=== PATIENT | female | born 1960 | race Caucasian/White ===

== ENCOUNTER 2020-01-15 17:30 | Inpatient (IN) | payer MEDICARE ==
[2020-01-15] MEDS ORDERED: MORPHINE 4 MG/ML SYR ONE (18:06)
[2020-01-15] MEDS ORDERED: NA CHLORIDE 0.9% 500 ML ONE (18:06)
[2020-01-15] MEDS ORDERED: FAMOTIDINE 20 MG/2 ML VIAL IV ONE (18:06)
[2020-01-15] MEDS ORDERED: ONDANSETRON 4 MG/2 ML VIAL ONE (18:06)
[2020-01-15 18:14] LABS: Absolute Lymphocytes (CBC) 0.8 K/uL (0.7-4.9); Basophils % 0.3 % (0-1.3); Hematocrit 41.4 % (36.0-45.0); Lymphocytes % 20.1 % (15.3-44.8); MPV 9.2 fL (7.6-11.3); RBC Red Blood Cell Count 4.08 M/uL (3.86-4.86)
[2020-01-15 18:23] LABS: Albumin 3.9 g/dL (3.4-5.0); Bilirubin Direct 0.4 mg/dL (0-0.2); Potassium 3.9 mmol/L (3.5-5.1); Protein, Total 7.7 g/dL (6.4-8.2)
--- NOTE | 2020-01-15 18:45 | RAD REPORT ---
EXAM DESCRIPTION: US - Abdomen Exam Limited - 01/15/2020 6:35 pm CLINICAL HISTORY: RUQ/epigastric pain;Abd pain COMPARISON: No comparisons FINDINGS: The gallbladder demonstrates prominent gallstone in the region of the gallbladder neck wit h a distended gallbladder visualize. No pericholecystic fluid or gallbladder wall thickening. The com mon bile duct is upper limit of normal measuring 7 mm. The liver demonstrates no findings of intrahepatic biliary dilatation. IMPRESSION: Gallbladder distension with cholelithiasis present.
[2020-01-15 19:40] LABS: Blood Morphology Comment NOT SEEN (NOT SEEN); Platelet Estimate DECR; White Blood Cell Scan OK (OK)
[2020-01-15] MEDS ORDERED: CEFTRIAXONE/SWI 1gm 1 GM/10 ML SYR ONE (19:54)
--- NOTE | 2020-01-15 20:00 | EDPHYS ---
Physician Documentation [facility] [place] Name: Radha Wallace Age: 59 yrs Sex: Female : 1960 Arrival Date: 01/15/2020 Time: 17:33 Bed 7 Private MD: ED Physician Dane Suazo HPI: 01/14 17:50 This 59 yrs old Female presents to ER via Ambulatory with complaints of cp Abdominal Pain. 17:50 The patient presents with abdominal pain in the upper abdomen. Onset: The cp symptoms/episode began/occurred today. The symptoms radiate to back. Associated signs and symptoms: Pertinent positives: nausea, Pertinent negatives: constipation, diarrhea, dysuria, fever, active vomiting. The symptoms are described as constant. Modifying factors: the symptoms are aggravated by pressure. Historical: - Allergies: 17:35 No Known Allergies; aa5 - PMHx: 17:35 Hep C; COPD; aa5 - Immunization history:: Adult Immunizations unknown. - Social history:: Smoking status: Patient reports the use of cigarette tobacco products, smokes one-half pack cigarettes per day. ROS: 17:55 Constitutional: Negative for body aches, chills, fever, poor PO intake. cp 17:55 Eyes: Negative for injury, pain, redness, and discharge. cp 17:55 ENT: Negative for ear pain, sore throat, difficulty swallowing, difficulty handling secretions. 17:55 Cardiovascular: Negative for chest pain. 17:55 Respiratory: Negative for cough, shortness of breath, wheezing. 17:55 Abdomen/GI: Positive for abdominal pain, nausea, Negative for vomiting, diarrhea, constipation. 17:55 Back: Positive for radiated pain. 17:55 : Negative for urinary symptoms. 17:55 All other systems are negative. Exam: 18:00 Constitutional: The patient appears in no acute distress, alert, awake, cp non-diaphoretic, non-toxic, well developed, well nourished, uncomfortable. 18:00 Head/Face: Normocephalic, atraumatic. cp 18:00 Eyes: Periorbital structures: appear normal, Conjunctiva: normal, no exudate, no injection, Sclera: no appreciated abnormality, Lids and lashes: appear normal, bilaterally. 18:00 ENT: External ear(s): are unremarkable, Nose: is normal, Posterior pharynx: Airway: no evidence of obstruction, patent. 18:00 Chest/axilla: Inspection: normal, Palpation: is normal, no crepitus, no tenderness. 18:00 Cardiovascular: Rate: normal, Rhythm: regular. 18:00 Respiratory: the patient does not display signs of respiratory distress, Respirations: normal, no use of accessory muscles, labored breathing, is not present, Breath sounds: are clear throughout, no decreased breath sounds. 18:00 Abdomen/GI: Inspection: abdomen appears normal, Bowel sounds: active, all quadrants, Palpation: soft, in all quadrants, severe abdominal tenderness, in the epigastric area and right upper quadrant, rebound tenderness, is appreciated in the right upper quadrant, voluntary guarding, is elicited in the right upper quadrant. 18:00 Back: pain, that is moderate, of the mid back area. 18:00 Neuro: Orientation: to person, place \T\ time. Mentation: is normal. Vital Signs: 17:34 BP 148 / 109; Pulse 84; Resp 16 S; Temp 98.5(O); Pulse Ox 97% on R/A; Weight 86.18 kg aa5 (R); Height 5 ft. 5 in. (165.10 cm) (R); Pain 6/10; 18:10 BP 145 / 87; Pulse 72; Resp 16 S; Pulse Ox 96% on R/A; aa5 19:45 BP 131 / 75; Pulse 70; Resp 19; Temp 98; Pulse Ox 94% ; Pain 4/10; rr5 20:30 BP 146 / 89; Pulse 80; Resp 17; Pulse Ox 98% ; Pain 4/10; rr5 21:20 BP 157 / 83; Pulse 75; Resp 18; Pulse Ox 99% ; Pain 7/10; rr5 22:20 BP 135 / 76; Pulse 70; Resp 16; Temp 98.1; Pulse Ox 95% ; rr5 17:34 Body Mass Index 31.62 (86.18 kg, 165.10 cm) aa5 MDM: 17:39 Patient medically screened. cp 18:00 Differential diagnosis: bowel obstruction, cholecystitis, Cholelithiasis, cp gastroesophageal reflux disease, pancreatitis, Peptic Ulcer Disease, Perf. Duodenal Ulcer, Perf. Gastric Ulcer, Ureterolithiasis, urinary tract infection. 19:00 Data reviewed: vital signs, nurses notes, lab test result(s), radiologic studies, cp ultrasound. 19:00 Response to treatment: the patient's symptoms have markedly improved after treatment. 19:15 Physician consultation: Richard Lindsay MD was called at 19:15, was contacted at 19:15, regarding consult, patient's condition. 19:45 Physician consultation: Woo MAY was contacted at 19:45, regarding cp admission, to the medical/surgical unit. patient's condition. 01/14 17:40 Order name: Basic Metabolic Panel; Complete Time: 18:31 cp 01/14 17:40 Order name: CBC with Diff cp 01/14 17:40 Order name: Hepatic Function; Complete Time: 18:31 cp 01/14 17:40 Order name: Lipase; Complete Time: 18:31 cp 01/14 19:40 Order name: CBC Smear Scan EDIN 01/14 21:13 Order name: Urinalysis EDIN 01/14 18:06 Order name: US Abdomen Limited; Complete Time: 18:59 cp 01/14 19:00 Interpretation: Report reviewed. cp 01/14 21:13 Order name: Basic Metabolic Panel EDIN 01/14 21:13 Order name: Basic Metabolic Panel EDIN 01/14 21:13 Order name: CBC with Automated Diff EDIN 01/14 21:13 Order name: CBC with Automated Diff EDIN 01/14 21:13 Order name: Magnesium EDIN 01/14 21:13 Order name: Magnesium EDIN 01/14 17:40 Order name: IV Saline Lock; Complete Time: 17:53 cp 01/14 17:40 Order name: Labs collected and sent; Complete Time: 17:59 cp 01/14 21:10 Order name: CONS Physician Consult EDIN 01/14 21:13 Order name: NPO EDIN Administered Medications: 17:50 Drug: NS 0.9% 500 ml Route: IV; Rate: bolus; Site: right forearm; bp 17:50 Drug: Zofran (Ondansetron) 4 mg Route: IVP; Site: right forearm; bp 18:10 Follow up: Response: No adverse reaction; Nausea is decreased aa5 17:50 Drug: morphine 4 mg Route: IVP; Site: right forearm; bp 18:10 Follow up: Response: No adverse reaction; Pain is decreased aa5 17:50 Drug: Pepcid 20 mg Route: IVP; Site: right forearm; bp 18:10 Follow up: Response: No adverse reaction aa5 19:46 Drug: Rocephin - (cefTRIAXone) 1 grams Route: IVPB; Infused Over: 30 mins; Site: right rr5 forearm; 22:19 Follow up: Response: No adverse reaction; IV Status: Completed infusion; IV Intake: [id number] Disposition: 01/15 07:15 Co-signature as Attending Physician, Dane Suazo MD. rn Disposition: 01/15/20 19:59 Hospitalization ordered by Alejandro Mclaughlin for Inpatient Admission. Preliminary diagnosis is Cholecystitis, unspecified. - Bed requested for Telemetry/MedSurg (Inpatient). - Status is Inpatient Admission. sg - Condition is Stable. - Problem is new. - Symptoms have improved. Signatures: Dispatcher [employer] EDMS Katarina Bernabe RN RN kl Gay, Steven, RN RN sg Nieto, Roman, MD MD rn Calderon, Audri, RN RN aa5 Spencer Velazquez PA PA cp Peltier, Brian, RN RN Sachin Henriquez RN RN rr5 Corrections: (The following items were deleted from the chart) 01/14 21:10 19:59 Hospitalization Ordered by Woo MAY for Inpatient Admission. cp Preliminary diagnosis is Cholecystitis, unspecified. Bed requested for Telemetry/MedSurg (Inpatient). Status is Inpatient Admission. Condition is Stable. Problem is new. Symptoms have improved. cp 22:16 21:10 01/15/2020 19:59 Hospitalization Ordered by Alejandro Mclaughlin MD for Inpatient kl Admission. Preliminary diagnosis is Cholecystitis, unspecified. Bed requested for Telemetry/MedSurg (Inpatient). Status is Inpatient Admission. Condition is Stable. Problem is new. Symptoms have improved. cp 22:45 22:16 01/15/2020 19:59 Hospitalization Ordered by Alejandro Mclaughlin MD for Inpatient sg Admission. Preliminary diagnosis is Cholecystitis, unspecified. Bed requested for Telemetry/MedSurg (Inpatient). Status is Inpatient Admission. Condition is Stable. Problem is new. Symptoms have improved. 01/15 05:05 01/14 17:50 The patient presents with abdominal pain in the epigastric area, cp cp
--- NOTE | 2020-01-15 20:00 | ER ---
Nurse's Notes [facility] Name: Radha Wallace Age: 59 yrs Sex: Female : 1960 Arrival Date: 01/15/2020 Time: 17:33 Bed 7 Private MD: Diagnosis: Cholecystitis, unspecified Presentation: 01/14 17:33 Chief complaint: Patient states: Acute RUQ pain and nausea. Denies vomiting/diarrhea. aa5 17:33 Coronavirus screen: Client denies travel out of the [place] in the last 14 days. At this aa5 time, the client does not indicate any symptoms associated with coronavirus-19. Ebola Screen: Patient negative for fever greater than or equal to 101.5 degrees Fahrenheit, and additional compatible Ebola Virus Disease symptoms. Initial Sepsis Screen: Does the patient meet any 2 criteria? No. Patient's initial sepsis screen is negative. Does the patient have a suspected source of infection? No. Patient's initial sepsis screen is negative. Risk Assessment: Do you want to hurt yourself or someone else? Patient reports no desire to harm self or others. Onset of symptoms was 2019. 17:33 Method Of Arrival: Ambulatory aa5 17:33 Acuity: ALESSANDRO 3 aa5 Historical: - Allergies: 17:35 No Known Allergies; aa5 - PMHx: 17:35 Hep C; COPD; aa5 - Immunization history:: Adult Immunizations unknown. - Social history:: Smoking status: Patient reports the use of cigarette tobacco products, smokes one-half pack cigarettes per day. Screenin:40 Abuse screen: Denies threats or abuse. Nutritional screening: No deficits noted. aa5 Tuberculosis screening: No symptoms or risk factors identified. Fall Risk None identified. Assessment: 17:34 General: Appears uncomfortable, Behavior is calm, cooperative. Pain: Complains of pain aa5 in right upper quadrant Pain radiates to epigastric area and left upper quadrant Pain currently is 6 out of 10 on a pain scale. Quality of pain is described as pressure, sharp, Pain began around 1600 today Is continuous. Neuro: Level of Consciousness is awake, alert, obeys commands, Oriented to person, place, time, situation. Cardiovascular: Heart tones S1 S2 present Rhythm is regular. Respiratory: Airway is patent Respiratory effort is even, unlabored, Respiratory pattern is regular, symmetrical. GI: Abdomen is round distended, Bowel sounds present X 4 quads. Abd is soft X 4 quads Abdomen is tender to palpation in right upper quadrant Reports nausea, Patient currently denies diarrhea, vomiting. : No signs and/or symptoms were reported regarding the genitourinary system. EENT: No signs and/or symptoms were reported regarding the EENT system. Derm: Skin is pink, warm \T\ dry. Musculoskeletal: Range of motion: intact in all extremities. 18:10 Reassessment: Patient is alert, oriented x 3, equal unlabored respirations, skin aa5 warm/dry/pink. Patient states feeling better. Awaiting US. Pain: Pain currently is 3 out of 10 on a pain scale. 18:13 Reassessment: US at bedside . aa5 19:30 General: Appears in no apparent distress. comfortable, Behavior is calm, cooperative, rr5 appropriate for age, reassess by ED provider advised for admission. patient agreed. instructed NPO post midnight. Pain: Complains of pain in right upper quadrant Pain currently is 5 out of 10 on a pain scale. Quality of pain is described as pressure, sharp, Pain began gradually, Is continuous. Neuro: Level of Consciousness is awake, alert, obeys commands, Oriented to person, place, time, situation. Cardiovascular: Capillary refill < 3 seconds Patient's skin is warm and dry. Respiratory: Airway is patent Respiratory effort is even, unlabored, Respiratory pattern is regular, symmetrical. GI: Abdomen is round distended, Reports upper abdominal pain, nausea. : No signs and/or symptoms were reported regarding the genitourinary system. Derm: Skin is intact, is healthy with good turgor, Skin temperature is warm. Musculoskeletal: Capillary refill < 3 seconds. 20:30 Reassessment: Patient appears in no apparent distress at this time. Patient is alert, rr5 oriented x 3, equal unlabored respirations, skin warm/dry/pink. 21:20 Reassessment: Patient appears in no apparent distress at this time. Patient is alert, rr5 oriented x 3, equal unlabored respirations, skin warm/dry/pink. complaint of RUQ pain, [facility] order for pain given and signed. 22:20 Reassessment: Patient appears in no apparent distress at this time. Patient is alert, rr5 oriented x 3, equal unlabored respirations, skin warm/dry/pink. Patient states symptoms have improved. Vital Signs: 17:34 BP 148 / 109; Pulse 84; Resp 16 S; Temp 98.5(O); Pulse Ox 97% on R/A; Weight 86.18 kg aa5 (R); Height 5 ft. 5 in. (165.10 cm) (R); Pain 6/10; 18:10 BP 145 / 87; Pulse 72; Resp 16 S; Pulse Ox 96% on R/A; aa5 19:45 BP 131 / 75; Pulse 70; Resp 19; Temp 98; Pulse Ox 94% ; Pain 4/10; rr5 20:30 BP 146 / 89; Pulse 80; Resp 17; Pulse Ox 98% ; Pain 4/10; rr5 21:20 BP 157 / 83; Pulse 75; Resp 18; Pulse Ox 99% ; Pain 7/10; rr5 22:20 BP 135 / 76; Pulse 70; Resp 16; Temp 98.1; Pulse Ox 95% ; rr5 17:34 Body Mass Index 31.62 (86.18 kg, 165.10 cm) aa5 ED Course: 17:33 Patient arrived in ED. aa5 17:33 Ambar Herman, BAKARI is Primary Nurse. aa5 17:33 Arm band placed on Patient placed in an exam room, on a stretcher. aa5 17:33 Patient has correct armband on for positive identification. Placed in gown. Bed in low aa5 position. Call light in reach. Side rails up X2. Pulse ox on. NIBP on. 17:34 Triage completed. aa5 17:36 Spencer Velazquez PA is PHCP. cp 17:36 Dane Suazo MD is Attending Physician. cp 17:53 Inserted saline lock: 20 gauge in right antecubital area, using aseptic technique. dh4 Blood collected. 18:35 US Abdomen Limited In Process Unspecified. EDMS 19:05 Report given to BAKARI Stephenson and BAKARI Cardenas. aa5 19:59 Woo Caldwell PA is Hospitalizing Provider. cp 21:10 Hospitalizing Provider role handed off by Woo Caldwell PA cp 21:10 Alejandro Mclaughlin MD is Hospitalizing Provider. cp 22:07 No provider procedures requiring assistance completed. IV is patent, with fluids rr5 infusing freely, Patient admitted, IV remains in place. Administered Medications: 17:50 Drug: NS 0.9% 500 ml Route: IV; Rate: bolus; Site: right forearm; bp 17:50 Drug: Zofran (Ondansetron) 4 mg Route: IVP; Site: right forearm; bp 18:10 Follow up: Response: No adverse reaction; Nausea is decreased aa5 17:50 Drug: morphine 4 mg Route: IVP; Site: right forearm; bp 18:10 Follow up: Response: No adverse reaction; Pain is decreased aa5 17:50 Drug: Pepcid 20 mg Route: IVP; Site: right forearm; bp 18:10 Follow up: Response: No adverse reaction aa5 19:46 Drug: Rocephin - (cefTRIAXone) 1 grams Route: IVPB; Infused Over: 30 mins; Site: right rr5 forearm; 22:19 Follow up: Response: No adverse reaction; IV Status: Completed infusion; IV Intake: [id number] Intake: 22:19 IV: 50ml; Total: 50ml. rr5 Outcome: 19:59 Decision to Hospitalize by Provider. cp 22:07 Condition: good rr5 22:07 Instructed on the need for admit. 22:40 Admitted to Tele accompanied by tech, via wheelchair, room 408, with chart, Report rr5 called to maryann 22:45 Patient left the ED. sg Signatures: Dispatcher [employer] EDMS Erasto Sibley RN RN sg Ambar Herman RN RN aa5 Spencer Velazquez PA PA cp Javed Woodruff RN RN bp Roque, Raymond, RN RN rr5 Manuel [facility]s formerly [facility], 1928–1983 Corrections: (The following items were deleted from the chart) 18:11 17:33 Chief complaint: Patient states: RUQ pain and nausea. Denies vomiting/diarrhea. aa5 aa5 22:40 22:20 BP 135 / 76; Pulse 70bpm; Resp 16bpm; Pulse Ox 95%; rr5 rr5 22:52 22:07 Admitted to ICU accompanied by nurse, via stretcher, room 3, Other sbar Report rr5 called to alfonso holt rr5
[2020-01-15] MEDS ORDERED: ACETAMINOPHEN 500 MG TAB PO PRN (21:10)
[2020-01-15] MEDS: MORPHINE 2 MG/ML SYR IV PRN (21:21)
[2020-01-15] MEDS: ONDANSETRON 4 MG/2 ML VIAL IV PRN (21:26)
[2020-01-15] MEDS: NA CHLORIDE 0.9% 1,000 ML IV SCH (22:00)
--- NOTE | 2020-01-15 22:21 | P.HP ---
Certification for Inpatient With expected LOS: >2 Midnights Patient will require the following post-hospital care: None Practitioner: I am a practitioner with admitting privileges, knowledge of patient current condition, hospital course, and medical plan of care. Services: Services provided to patient in accordance with Admission requirements found in Title 42 Section 412.3 of the Code of Federal Regulations <Woo Caldwell - Last Filed: 01/15/20 22:36> Patient History Date of Service: 01/15/20 Reason for admission: Acute cholecystitis History of Present Illness: 67-year-old female with a past medical history of hep C, nicotine dependence and COPD presents to the emergency room complaining of right upper quadrant pain. States the pain in her right upper quadrant area started earlier this morning when she was at the [employer] [place]. Onset was sudden. States that the pain progressively worsened and patient came to the emergency room. In the emergency room patient's lab work shows a white cell count of 3.9, platelets of 66, elevated liver enzyme of AST of 115, ALT of 118 and a direct bili of 0.4. Patient does have a history of hepatitis-C. Her lipase is normal at 77. Rest of lab work is fairly unremarkable. Ultrasound of the gallbladder shows a distended gallbladder with gallstones. Surgery was consulted and patient will likely undergo a laparoscopic cholecystectomy in the morning. Patient will be admitted and further evaluated. <Woo Caldwell - Last Filed: 01/15/20 22:36> Date of Service: 01/15/20 <Alejandro Mclaughlin - Last Filed: 01/20/20 08:12> Allergies No Known Allergies Allergy (Unverified 01/15/20 21:15) Home Medications: Hydrocodone Bit/Acetaminophen [[place] 10-325 Tablet] 1 each PO Q6HP PRN #30 tablet 01/17/20 Levofloxacin [Levaquin] 500 mg PO DAILY #5 tablet 01/17/20 metroNIDAZOLE [Flagyl] 500 mg PO Q8H #21 tablet 01/17/20 Review of Systems General: As per HPI Eyes: Unremarkable ENT: Unremarkable Respiratory: Unremarkable Cardiovascular: Unremarkable Gastrointestinal: Abdominal Pain (Right upper quadrant pain), As per HPI Genitourinary: Unremarkable Musculoskeletal: Unremarkable Integumentary: Unremarkable Neurological: Unremarkable Lymphatics: Unremarkable <Woo Caldwell - Last Filed: 01/15/20 22:36> Physical Examination - Vital Signs Temperature: 98.5 F Blood Pressure: 131/75 Pulse: 70 Respirations: 18 Pulse Ox (%): 94 (RA) - Physical Exam General: Alert, In no apparent distress, Oriented x3 HEENT: Atraumatic, Normocephalic, PERRLA, Mucous membr. moist/pink Neck: Supple, No Thyromegaly, Other (Trachea midline) Respiratory: Clear to auscultation bilaterally, Normal air movement Cardiovascular: No edema, Normal pulses, Regular rate/rhythm, Normal S1 S2 Capillary refill: <2 Seconds Gastrointestinal: Normal bowel sounds, Non-distended, No rebound, No guarding, Tenderness (Right upper quadrant) Musculoskeletal: No clubbing, No swelling, No contractures, No erythema Integumentary: No rashes, No breakdown, No significant lesion, No erythema Neurological: Normal gait, Normal speech, Normal strength at 5/5 x4 extr, Normal tone - Studies Laboratory Data (last 24 hrs) 01/15/20 17:42: WBC 3.9 L, Hgb 14.4, Hct 41.4, Plt Count 66 L 01/15/20 17:42: Sodium 138, Potassium 3.9, BUN 10, Creatinine 0.68, Glucose 82, Total Bilirubin 1.0, AST 115 H, ALT 118 H, Alkaline Phosphatase 100, Lipase 77 <Woo Caldwell - Last Filed: 01/15/20 22:36> Assessment and Plan - Plan Impression: Acute cholecystitis with cholelithiasis: History of hep C: Thrombocytopenia: History of COPD not on home O2: Nicotine dependent: Plan: Acute cholecystitis with cholelithiasis: Abdominal ultrasound shows a distended gallbladder with gallstones. Surgery consulted-Dr. Lindsay. Keep patient NPO. Continue IV pain medication for proper pain control. Continue gentle IV fluids. Continuous telemetry. Patient likely to have laparoscopic cholecystectomy in the morning. History of hep C: Elevated liver enzymes on admission. Patient has a history of hep C. followed outpatient. Thrombocytopenia: Likely secondary to hep C as above. Platelets of 66. Monitor. History of COPD not on home O2: Patient smokes half a pack of cigarettes per day. Not on home oxygen. Monitor O2 saturations. Nicotine dependent: Smokes half a pack of cigarettes per day. Counseled. Discharge Plan: Home - Advance Directives Does patient have a Living Will: No Does patient have a Durable POA for Healthcare: No - Code Status/Comfort Care Code Status Assessed: Yes Time Spent Managing Pts Care (In Minutes): 55 <Woo Caldwell - Last Filed: 01/15/20 22:36> - Problems (Diagnosis) (1) Acute cholecystitis Status: Acute (2) Thrombocytopenia Status: Acute (3) Cirrhosis Status: Acute (4) Hepatitis C Status: Acute <Alejandro Mclaughlin - Last Filed: 01/20/20 08:12> Date of Service: 01/16/20 Agree with plan of care as mentioned above. Will monitor patient closely at this time. <Alejandro Mclaughlin - Last Filed: 01/20/20 08:12>
--- NOTE | 2020-01-15 23:36 | P.HP ---
Date of Service: 01/15/20 PC: This 59-year-old female presents emergency room with severe right upper quadrant abdominal pain for diagnosis and treatment. HPC: Patient says she had a pain like this earlier in the year. Was supposed to have a workup on an lost her insurance. She was seen in number of years ago at that time was known to have sludge. PMH: Hepatitis PSHx: Hysterectomy SOC: No known allergy SYS REVIEW: No cough, wheeze, shortness of breath. No chest pain or palpitations. No urinary complaints O/E awake alert stable HEENT: Nonicteric Chest: Chest movement equal bilateral ABD: Mild right upper quadrant tendon LOCO: Intact DATA: Ultrasound shows large stone in a dilated gallbladder near the neck probably impacted in Lupis's pouch IMPRESSION: Acute on chronic cholecystitis with cholelithiasis PLAN: The patient is comfortable at the moment. Her pain is controlled with IV medication. I will take her to the operating room in the morning for a laparoscopic possible open cholecystectomy. We will also do a cholangiogram and possible liver biopsy. The risks of this procedure were discussed. The possibi lity of bleeding, infection, injury to bile ducts blood vessels and intestines were described. The possible need for an open and/or further surgeries and procedures was discussed. She understands and wants to proceed.
[2020-01-16] MEDS: PIPER/TAZO/NS 3.375gm 3.375 GM/100 ML BAG IVPB SCH ×3 (00:04→16:47)
[2020-01-16 00:47] VITALS: BMI 31.6
[2020-01-16] MEDS ORDERED: HEPARIN 5000 UNIT/ML 1 ML VIAL SQ SCH (01:00)
[2020-01-16 02:09] LABS: Urine Appearance CLEAR; Urine Bilirubin NEGATIVE (NEG); Urine Blood NEGATIVE (NEG); Urine Color YELLOW; Urine Glucose NEGATIVE (NEG); Urine Microscopic Reflex NO UMIC; Urine Protein NEGATIVE (NEG); Urine Urobilinogen 0.2 mg/dL (0.2-1.0); Urine pH 5.5 (5.0-7.0)
[2020-01-16] MEDS: ONDANSETRON 4 MG/2 ML VIAL IV PRN ×4 (03:21→21:56)
[2020-01-16] MEDS: MORPHINE 2 MG/ML SYR IV PRN (03:21)
[2020-01-16 04:01] LABS: Absolute Lymphocytes (CBC) 0.8 K/uL (0.7-4.9); Basophils % 0.7 % (0-1.3); Hematocrit 36.9 % (36.0-45.0); Lymphocytes % 29.5 % (15.3-44.8); MPV 8.6 fL (7.6-11.3); RBC Red Blood Cell Count 3.62 M/uL (3.86-4.86)
[2020-01-16 04:24] LABS: Magnesium 1.9 mg/dL (1.8-2.4)
[2020-01-16] MEDS: NA CHLORIDE 0.9% 1,000 ML IV SCH ×3 (08:48→21:08)
[2020-01-16] MEDS: MORPHINE 4 MG/ML SYR IV PRN ×3 (08:59→21:55)
[2020-01-16] MEDS ORDERED: INFLUENZA VACCINE (for 3y+) 0.5 ML DOSE IMVAC ONE (09:00)
[2020-01-16] MEDS ORDERED: PNEUMOCOCCAL VACCINE 0.5 ML IMVAC ONE (09:00)
[2020-01-16] MEDS ORDERED: FENTANYL CITR 100 MCG/2 ML ONE (11:58)
[2020-01-16] MEDS ORDERED: propofoL 200 MG/20 ML VIAL IV ONE (11:58)
[2020-01-16] MEDS ORDERED: KETOROLAC 30 MG/ML INJ ONE (11:58)
[2020-01-16] MEDS ORDERED: MIDAZOLAM HCL 2 MG/2 ML INJ ONE (11:58)
[2020-01-16] MEDS ORDERED: LIDOCAINE 2% MPF 5 ML VIAL ONE (11:58)
[2020-01-16] MEDS ORDERED: dexAMETHasone 4 MG/ML VIAL ONE (12:00)
[2020-01-16] MEDS ORDERED: ONDANSETRON 4 MG/2 ML VIAL ONE (12:00)
[2020-01-16] MEDS ORDERED: ROCURONIUM 50 MG/5 ML VIAL IV ONE ×2 (12:00→13:51)
--- NOTE | 2020-01-16 12:03 | P.PN ---
Date of Service: 01/16/20 S: Patient is still having persistent pain. Can't get any relief from it. O: Mild right upper quadrant tenderness, platelet count [id number] A: Biliary colic with stone stuck in Lupis's pouch PE: Once again and discuss the surgery with the patient. The risks of bleeding injury to bile ducts Excedrin the possibility of an open procedure were outlined. She understands and wants to proceed. We will give her some platelets intra and postoperatively. We will also get a liver biopsy.
[2020-01-16] MEDS ORDERED: NA CHLORIDE 0.9% 100 ML IV ONE (12:08)
[2020-01-16] MEDS ORDERED: ALBUTEROL 2.5 MG/3 ML NEB SOL ONE (12:20)
[2020-01-16] MEDS ORDERED: ALBUTEROL INHALER 60 PUFF/8 GM IH ONE (13:00)
[2020-01-16] MEDS ORDERED: GLYCOPYRROLATE 0.2 MG/ML SYR ONE ×3 (14:06→14:13)
[2020-01-16] MEDS ORDERED: NEOSTIGMINE 1 MG/ML -5 ML ONE (14:07)
[2020-01-16] MEDS ORDERED: LABETALOL 20 MG/4ML SYRINGE IV ONE (14:12)
--- NOTE | 2020-01-16 14:31 | P.OP ---
Preoperative diagnosis: Cholecystitis with cholelithiasis, biliary colic Postoperative diagnosis: Cholecystitis with cholelithiasis, cirrhosis Primary procedure: Laparoscopic cholecystectomy with intraoperative cholangiogram Secondary procedure: Liver biopsy Anesthesia: General Estimated blood loss: Less than 20-30 cc Operative Technique: The patient brought the operating room placed supine on the table. After the induction of adequate general endotracheal anesthesia, there the abdomen was prepped with a DuraPrep solution, and she was draped in usual aseptic manner. A subumbilical incision was made. This brought down through the skin and subcutaneous tissue. The Visiport was now used to enter the peritoneal cavity and created pneumoperitoneum to approximately 12 mm of mercury. Under direct vision a 5 mm trocar was placed in the upper midline and 2 others on the right lateral side of the abdominal wall. With the patient placed in reverse Trendelenburg and rolled to the left side we were able to visualize the right upper quadrant. We could see a cirrhotic liver as well as an markedly enlarged gallbladder. It had almost at the level of the umbilicus a grasper was placed on the body of the gallbladder. It was then elevated. We could see there was extensive amount of chronic thick dense inflammatory tissue. This was gently dissected off to expose Lupis's pouch. How was pressure was now able to be grasped. Again dissected away this chronic scar tissue we finally were able to expose the cystic duct and cystic artery. Having obtained a slightly compromised critical view, we were able to clip and divide the artery. A clip was now placed between the gallbladder and the cystic duct. An opening was made into the cystic duct through which we were able to 10 demonstrate a clean extra hepatic biliary tree. We could also verified that we were in the cystic duct. At this point the catheter was removed. Clips were placed on the distal portion of the cystic duct. The gallbladder was now laboriously dissected out of the liver bed. The port, placed into an Endo-Catch and brought out through the umbilical trocar site. At this point the liver bed was inspected to ensure adequate hemostasis. We we did see a small area of bile in the liver bed and a small duct was noted in that area. 2 clips were placed to control it. There is now irrigated with a copious amount of saline solution. Attention was turned towards the right lobe of the liver. A small skin incision was made with 11 blade. The Nam-Cut needle was now passed into the peritoneal cavity and under direct vision a Nam-Cut needle biopsy was done of the right lobe of the liver. This was sent for histopathology. Electro cautery was used to control the bleeding. At this point the at was inspected to ensure adequate hemostasis. The umbilical trocar site was approximated using the Endo Close an absorbable suture. The pneumoperitoneum was collapsed, the sutures tied, and the trocars removed. Mindy were then applied to the skin. At the end of procedure she was stable when sent to the recovery room. Needle sponge instrument count were correct. No drains were placed. Complications: None Transferred to: Recovery Room Condition: Good
[2020-01-16] MEDS ORDERED: PROMETHAZINE INJ 25 MG/ML AMP ONE (14:59)
[2020-01-16] MEDS ORDERED: MEPERIDINE HCL 25 MG/ML SYR ONE (15:00)
[2020-01-16] MEDS ORDERED: NA CHLORIDE 0.9% 1,000 ML ONE (15:02)
[2020-01-16] MEDS: HYDROMORPHONE HCL 1 MG/ML INJ ONE ×2 (15:11→15:19)
--- NOTE | 2020-01-16 15:20 | RAD REPORT ---
EXAM DESCRIPTION: RADCholangiogram Oper-Xray Or01/16/2020 3:08 pm CLINICAL HISTORY: Abdominal pain FINDINGS: The examination was performed by Dr. Lindsay. The cystic duct was cannulated and contrast administered. Contrast flowed into the duodenum. No permanent filling defect within the common bile duct. Three fluoroscopic spot images obtained. Fluoroscopy time 0.1 minute
[2020-01-16 15:29] LABS: MPV 8.9 fL (7.6-11.3)
--- NOTE | 2020-01-16 16:13 | P.PN ---
Subjective Date of Service: 01/16/20 Patient scheduled for surgery today. Patient has history of hepatitis-C that has not been treated. She says she is not able to afford the treatment. She has not seen a GI doctor in the last 2 years. She was thrombocytopenic on arrival. Platelet count 47,000. Transfused platelet count main galley scullion to the OR. Surgery also wants platelet transfusion afterwards. Review of Systems 10-point ROS is otherwise unremarkable Physical Examination - Vital Signs Temperature: 97.9 F Blood Pressure: 106/52 Pulse: 70 Respirations: 16 Pulse Ox (%): 93 - Physical Exam General: Alert, In no apparent distress, Oriented x3 Respiratory: Clear to auscultation bilaterally, Normal air movement Cardiovascular: Regular rate/rhythm, Normal S1 S2, No murmurs Gastrointestinal: Normal bowel sounds, Soft and benign, Distended, Tenderness, Rebound Musculoskeletal: No clubbing, No swelling, No tenderness Neurological: Normal strength at 5/5 x4 extr, Sensation intact, Cranial nerves 3-12 intact - Studies Laboratory Data (last 24 hrs) 01/15/20 17:42: WBC 3.9 L, Hgb 14.4, Hct 41.4, Plt Count 66 L 01/15/20 17:42: Sodium 138, Potassium 3.9, BUN 10, Creatinine 0.68, Glucose 82, Total Bilirubin 1.0, AST 115 H, ALT 118 H, Alkaline Phosphatase 100, Lipase 77 Medications List Reviewed: Yes Assessment & Plan - Problems (Diagnosis) (1) Acute cholecystitis Status: Acute (2) Thrombocytopenia Status: Acute (3) Cirrhosis Status: Acute (4) Hepatitis C Status: Acute - Plan 1. Continue with IV hydration 2. Continue with IV antibiotics 3. Continue with pain control 4. NPO 5. General surgery consultation appreciated 6. Serial H&H, and we will monitor CBC, BMP, LFTs and lipase along with electrolytes. 7. GI and DVT prophylaxis Discharge Plan: Home Plan to discharge in: Greater than 2 days - Advance Directives Does patient have a Living Will: No Does patient have a Durable POA for Healthcare: No - Code Status/Comfort Care Code Status Assessed: No Code Status: Full Code Critical Care: No Time Spent Managing PTS Care (In Minutes): 35
[2020-01-16 18:15] LABS: Platelet Estimate DECR
[2020-01-16] MEDS ORDERED: NA CHLORIDE 0.9% 250 ML ONE (21:19)
[2020-01-16 23:39] LABS: MPV 8.3 fL (7.6-11.3)
[2020-01-16 23:40] LABS: Platelet Estimate ND
[2020-01-17] MEDS: PIPER/TAZO/NS 3.375gm 3.375 GM/100 ML BAG IVPB SCH ×2 (00:02→08:17)
[2020-01-17] MEDS: MORPHINE 4 MG/ML SYR IV PRN ×4 (02:05→14:05)
[2020-01-17] MEDS: NA CHLORIDE 0.9% 1,000 ML IV SCH ×2 (06:11→14:00)
[2020-01-17 09:21] LABS: Absolute Lymphocytes (CBC) 0.7 K/uL (0.7-4.9); Basophils % 0.3 % (0-1.3); Hematocrit 38.8 % (36.0-45.0); Lymphocytes % 14.7 % (15.3-44.8); MPV 8.5 fL (7.6-11.3); Protime INR 1.09; RBC Red Blood Cell Count 3.77 M/uL (3.86-4.86)
[2020-01-17 09:24] LABS: Albumin 3.2 g/dL (3.4-5.0); Potassium 3.5 mmol/L (3.5-5.1); Protein, Total 6.4 g/dL (6.4-8.2)
[2020-01-17 11:37] VITALS: O2SAT 94
--- NOTE | 2020-01-17 13:56 | P.PN ---
Date of Service: 01/17/20 S: Patient feels much better today, up ambulating, tolerating a diet. O: Incisions are clean, has some scattered petechiae around the ports as expected. A: Surgically stable P: Discharge home.
[2020-01-17] MEDS ORDERED: PNEUMOCOCCAL VACCINE 0.5 ML IMVAC ONE (15:00)
[2020-01-17] MEDS ORDERED: INFLUENZA VACCINE (for 3y+) 0.5 ML DOSE IMVAC ONE (15:00)
[2020-01-19 14:42] VITALS: BP 106/52; TEMP 97.9
--- NOTE | 2020-01-19 14:43 | P.DS ---
Discharge Date: 01/17/20 Disposition: ROUTINE DISCHARGE Discharge Condition: GOOD Reason for Admission: Acute cholecystitis Consultations: General surgeon - Problems (1) Acute cholecystitis Status: Acute (2) Thrombocytopenia Status: Acute (3) Cirrhosis Status: Acute (4) Hepatitis C Status: Acute Brief History of Present Illness: Patient is a 67-year-old female with a past medical history of hep C, nicotine dependence and COPD presents to the emergency room complaining of right upper quadrant pain. States the pain in her right upper quadrant area started earlier this morning when she was at the [employer] [place]. Onset was sudden. States that the pain progressively worsened and patient came to the emergency room. In the emergency room patient's lab work shows a white cell count of 3.9, platelets of 66, elevated liver enzyme of AST of 115, ALT of 118 and a direct bili of 0.4. Patient does have a history of hepatitis-C. Her lipase is normal at 77. Rest of lab work is fairly unremarkable. Ultrasound of the gallbladder shows a distended gallbladder with gallstones. Surgery was consulted and patient will likely undergo a laparoscopic cholecystectomy in the morning. Patient will be admitted and further evaluated. Hospital Course: Patient has done well postoperatively. Patient does have little bit of drainage and was seen by General surgery. Patient is stable for discharge per their recommendations. Will continue with antibiotics at the time of discharge. Outpatient follow-up with General surgery in 1-2 weeks. Vital Signs/Physical Exam: Temp Pulse Resp BP Pulse Ox 97.9 F 70 16 106/52 L 93 01/19/20 14:42 01/19/20 14:42 01/19/20 14:42 01/19/20 14:42 01/19/20 14:42 General: Alert, In no apparent distress, Oriented x3 Laboratory Data at Discharge: WBC 4.7 K/uL (4.3-10.9) D 01/17/20 08:50 Hgb 13.4 g/dL (12.0-15.0) 01/17/20 08:50 Hct 38.8 % (36.0-45.0) 01/17/20 08:50 Plt Count 78 K/uL (152-406) L 01/17/20 08:50 PT 12.8 SECONDS (9.5-12.5) H 01/17/20 08:50 INR 1.09 01/17/20 08:50 APTT 28.9 SECONDS (24.3-36.9) 01/17/20 08:50 Sodium 142 mmol/L (136-145) 01/17/20 08:50 Potassium 3.5 mmol/L (3.5-5.1) 01/17/20 08:50 BUN 7 mg/dL (7-18) 01/17/20 08:50 Creatinine 0.73 mg/dL (0.55-1.3) 01/17/20 08:50 Glucose 102 mg/dL (74-106) 01/17/20 08:50 Magnesium 1.9 mg/dL (1.8-2.4) 01/16/20 03:10 Total Bilirubin 1.0 mg/dL (0.2-1.0) 01/17/20 08:50 AST 63 U/L (15-37) H 01/17/20 08:50 ALT 86 U/L (12-78) H 01/17/20 08:50 Alkaline Phosphatase 66 U/L (45-117) 01/17/20 08:50 Lipase 77 U/L (73-393) 01/15/20 17:42 Home Medications: Hydrocodone Bit/Acetaminophen [[place] 10-325 Tablet] 1 each PO Q6HP PRN #30 tablet 01/17/20 Levofloxacin [Levaquin] 500 mg PO DAILY #5 tablet 01/17/20 metroNIDAZOLE [Flagyl] 500 mg PO Q8H #21 tablet 01/17/20 New Medications: metroNIDAZOLE [Flagyl] 500 mg PO Q8H #21 tablet Levofloxacin [Levaquin] 500 mg PO DAILY #5 tablet Hydrocodone Bit/Acetaminophen [[place] 10-325 Tablet] 1 each PO Q6HP PRN #30 tablet PRN Reason: Pain Scale 2-4 (Mild) Patient Discharge Instructions: OK TO DC IV AND DC HOME. FOLLOW-UP WITH PRIMARY CARE PROVIDER IN 1-2 WEEKS. FOLLOW UP WITH GASTROENTEROLOGY IN 1-2 WEEKS. FOLLOW-UP WITH SURGERY IN 1-2 WEEKS. RETURN TO THE ER IF SYMPTOMS WORSEN. CALL or TEXT DR. NAILS AT [phone] IF ANY QUESTIONS REGARDING HOSPITAL STAY. PLEASE CALL THE FLOOR AT [phone] IF ANY MEDICATION OR NURSING QUESTIONS. Diet: AHA Activity: Fall precautions Followup: Richard Lindsay MD [ACTIVE - CAN ADMIT] - 1-2 Weeks (surgeon- call to schedule follow up visit ) Time spent managing pt's care (in minutes): 35
== END 2020-01-17 15:35 | disposition home or self-care (01) | DRG 419 ==
LOC: ER 17:30 → ERHOLD 21:02 → 4TH 22:38
PROVIDERS: ADMIT Hospitalist; ATTEND Hospitalist
PROC: BF121ZZ Fluoroscopy of Gallbladder using Low Osmolar Contrast (ICD-10-PCS; 2020-01-16)
PROC: 0FB13ZX Excision of Right Lobe Liver, Percutaneous Approach, Diagnostic (ICD-10-PCS; 2020-01-16)
PROC: 0FT44ZZ Resection of Gallbladder, Percutaneous Endoscopic Approach (ICD-10-PCS; principal; 2020-01-16 12:00)
DX: K80.12 Calculus of gallbladder with acute and chronic cholecystitis without obstruction (principal); D69.6 Thrombocytopenia, unspecified; F17.210 Nicotine dependence, cigarettes, uncomplicated; K74.60 Unspecified cirrhosis of liver; B19.20 Unspecified viral hepatitis C without hepatic coma; J44.9 Chronic obstructive pulmonary disease, unspecified; R94.5 Abnormal results of liver function studies; Z90.710 Acquired absence of both cervix and uterus; Z79.890 Hormone replacement therapy; Z79.899 Other long term (current) drug therapy; Z79.891 Long term (current) use of opiate analgesic; Z20.828 Contact with and (suspected) exposure to other viral communicable diseases
CPT/HCPCS: 36415; 74300; 76705; 80048; 80053; 80076; 81003; 83690; 83735; 85025; 85049; 85610; 85730; 86850; 86900; 86901; 88304; 88307; 88313; 90471; 90732; 96365; 96366; 96375; 99285; J0696; J1100; J1170; J1644; J2175; J2250; J2270; J2405; J2543; J2550; J2704; J2710; J3010; J7030; J7040; J7050; P9035; Q2035; U0003

== ENCOUNTER 2020-02-01 16:44 | Emergency (ER) | payer MEDICARE ==
[2020-02-01] MEDS ORDERED: ONDANSETRON 4 MG/2 ML VIAL ONE ×2 (17:35→19:29)
[2020-02-01 19:26] LABS: Absolute Lymphocytes (CBC) 0.7 K/uL (0.7-4.9); Basophils % 0.6 % (0-1.3); Hematocrit 41.7 % (36.0-45.0); Lymphocytes % 18.8 % (15.3-44.8); MPV 9.2 fL (7.6-11.3); RBC Red Blood Cell Count 4.09 M/uL (3.86-4.86)
[2020-02-01] MEDS ORDERED: FENTANYL CITR 100 MCG/2 ML ONE (19:29)
[2020-02-01 19:36] LABS: Albumin 2.7 g/dL (3.4-5.0); Bilirubin Direct 0.2 mg/dL (0-0.2); Bilirubin Total 0.5 mg/dL (0.2-1.0); Potassium 3.9 mmol/L (3.5-5.1); Protein, Total 5.4 g/dL (6.4-8.2)
[2020-02-01 20:07] LABS: Urine Blood NEGATIVE (NEG); Urine Glucose NEGATIVE (NEG); Urine Protein NEGATIVE (NEG); Urine Specific Gravity 1.015 (1.005-1.030); Urine pH 5.5 (5.0-7.0)
[2020-02-01 20:14] LABS: Urine Bacteria <20 /HPF (<20); Urine Culture Reflex Order NOT NEEDED; Urine Mucus 1+ /HPF (NONE SEEN); Urine RBC NONE SEEN /HPF (NONE SEEN)
[2020-02-01 20:16] LABS: Blood Morphology Comment NOT SEEN (NOT SEEN); Platelet Estimate DECR; White Blood Cell Scan OK (OK)
--- NOTE | 2020-02-01 20:26 | RAD REPORT ---
EXAM DESCRIPTION: CTAbdomen Pelvis W Contrast - 02/01/2020 8:12 pm CLINICAL HISTORY: Abdominal pain. lower abdomen pain COMPARISON: No comparisons TECHNIQUE: Biphasic CT imaging of the abdomen and pelvis was performed with 100 ml non-ionic IV cont rast. All CT scans are performed using dose optimization technique as appropriate and may include automated exposure control or mA/KV adjustment according to patient size. FINDINGS: The lung bases are clear. The liver demonstrates moderate cirrhosis. Recannulized paraumbilical vein is present. Cholecystectom y clips. Mild splenomegaly. Pancreas, adrenal glands and kidneys are within normal limits. No bowel obstruction, free air or abscess. Mild ascites. The appendix is normal. No evidence of sign ificant lymphadenopathy. No suspicious bony findings. IMPRESSION: Moderate cirrhosis, mild splenomegaly and mild ascites.
[2020-02-01] MEDS ORDERED: NA CHLORIDE 0.9% 100 ML IV ONE (21:14)
[2020-02-01] MEDS ORDERED: CLINDAMYCIN 900MG/D5W 900 MG/50 ML IVPB IV ONE (21:14)
[2020-02-01] MEDS ORDERED: SMZ./TMP. 800/160 MG TABLET ONE (21:14)
--- NOTE | 2020-02-01 21:46 | EDPHYS ---
Physician Documentation [facility] Name: Radha Wallace Age: 59 yrs Sex: Female : 1960 Arrival Date: 02/01/2020 Time: 16:47 Bed 7 Private MD: ED Physician Spencer Razo HPI: 01/31 17:20 This 59 yrs old Female presents to ER via Ambulatory with complaints of cp Abdominal Pain. 17:20 The patient presents with abdominal pain in the lower abdomen, suprapubic area. cp 17:20 Onset: The symptoms/episode began/occurred today. The symptoms do not radiate. cp Associated signs and symptoms: Pertinent positives: swelling of right groin and vaginal area, Pertinent negatives: constipation, diarrhea, fever. Severity of pain: in the emergency department the pain is unchanged despite home interventions. 17:20 Patient reports having cholecystectomy performed approximately [address] declan Lindsay without complication. Historical: - Allergies: 17:05 No Known Allergies; sv - PMHx: 17:05 COPD; HEP C; sv - Immunization history:: Adult Immunizations unknown. - Social history:: Smoking status: unknown. ROS: 17:30 Constitutional: Negative for body aches, chills, fever, poor PO intake. cp 17:30 Eyes: Negative for injury, pain, redness, and discharge. cp 17:30 ENT: Negative for sore throat, difficulty swallowing, difficulty handling secretions. 17:30 Respiratory: Negative for cough, shortness of breath, wheezing. 17:30 Abdomen/GI: Positive for abdominal pain, Negative for vomiting, diarrhea, constipation. 17:30 Back: Negative for radiated pain. 17:30 Skin: Positive for erythema, swelling, of the suprapubic area and groin. 17:30 Neuro: Negative for altered mental status, headache. 17:30 All other systems are negative. Exam: 17:35 Constitutional: The patient appears in no acute distress, alert, awake, non-toxic, well cp developed, well nourished, uncomfortable. 17:35 Head/Face: Normocephalic, atraumatic. cp 17:35 Eyes: Periorbital structures: appear normal, Conjunctiva: normal, no exudate, no injection, Sclera: no appreciated abnormality, Lids and lashes: appear normal, bilaterally. 17:35 ENT: External ear(s): are unremarkable, Nose: is normal, Mouth: Lips: moist, Oral mucosa: moist, Posterior pharynx: Airway: no evidence of obstruction, patent. 17:35 Chest/axilla: Inspection: normal, Palpation: is normal, no crepitus, no tenderness. 17:35 Cardiovascular: Rate: tachycardic, Rhythm: regular. 17:35 Respiratory: the patient does not display signs of respiratory distress, Respirations: normal, no use of accessory muscles, no retractions, labored breathing, is not present, Breath sounds: are clear throughout, no decreased breath sounds. 17:35 Abdomen/GI: Inspection: scar(s), midline surgical appears well healed, mild erythema noted to suprapubic area, Bowel sounds: active, all quadrants, Palpation: soft, in all quadrants, moderate abdominal tenderness, in the suprapubic area, voluntary guarding, is elicited in the suprapubic area. 17:35 Skin: mild swelling noted of suprapubic area and right groin and right labia majora. Vital Signs: 17:05 BP 135 / 97; Pulse 109; Resp 20; Temp 97; Pulse Ox 100% ; Height 5 ft. 4 in. (162.56 sv cm); 19:00 BP 131 / 67; Pulse 78; Resp 17; Pulse Ox 99% on R/A; rv 19:30 BP 141 / 73; Pulse 81; Resp 17; Pulse Ox 97% on R/A; rv 20:36 BP 111 / 75; Pulse 84; Resp 18; Pulse Ox 97% on R/A; rv 20:38 Pain 5/10; rv 21:34 BP 111 / 72; Pulse 81; Resp 18; Pulse Ox 98% on R/A; mg2 MDM: 17:17 Patient medically screened. cp 18:00 Differential diagnosis: Pyelonephritis, urinary tract infection, cellulitis, abscess. cp 21:45 Data reviewed: vital signs, nurses notes, lab test result(s), radiologic studies, CT cp scan, I have discussed the patient's presentation/case with the attending Emergency Department Physician; and as a result, I will discharge patient. 21:45 Counseling: I had a detailed discussion with the patient and/or guardian regarding: the cp historical points, exam findings, and any diagnostic results supporting the discharge/admit diagnosis, lab results, radiology results, the need for outpatient follow up, a family practitioner, to return to the emergency department if symptoms worsen or persist or if there are any questions or concerns that arise at home. Response to treatment: the patient's symptoms have markedly improved after treatment, and as a result, I will discharge patient. 01/31 17:19 Order name: Urine Microscopic Only cp 01/31 17:20 Order name: Urine Microscopic Only; Complete Time: 20:40 EDMS 01/31 18:47 Order name: Basic Metabolic Panel; Complete Time: 20:40 cp 01/31 20:41 Interpretation: Normal except: CL 109; GFR 76; CA 8.1. cp 01/31 18:47 Order name: CBC with Diff; Complete Time: 20:40 cp 01/31 20:40 Interpretation: Normal except: WBC 3.6; MCV 101.9; MCH 35.4; PLT 66. cp 01/31 18:47 Order name: Hepatic Function; Complete Time: 20:40 cp 01/31 20:40 Interpretation: Normal except: AST 97; ALT 102; ALK 127; TP 5.4; ALB 2.7; A/G 1.0. cp 01/31 18:47 Order name: Lipase; Complete Time: 20:40 cp 01/31 18:50 Order name: CT Abd/Pelvis - IV Contrast Only; Complete Time: 20:40 cp 01/31 19:28 Order name: CBC Smear Scan; Complete Time: 20:40 EDMS 01/31 19:41 Order name: Urine Dipstick--Ancillary (enter results); Complete Time: 20:40 mw2 01/31 17:19 Order name: Bladder Scanner; Complete Time: 17:21 cp 01/31 17:19 Order name: Choe; Complete Time: 19:52 cp 01/31 17:19 Order name: Urine Dipstick-Ancillary (obtain specimen); Complete Time: 19:43 cp 01/31 18:47 Order name: IV Saline Lock; Complete Time: 19:01 cp 01/31 18:47 Order name: Labs collected and sent; Complete Time: 19:59 cp Administered Medications: 19:15 Drug: Zofran (Ondansetron) 4 mg Route: PO; rv 20:38 Follow up: Response: No adverse reaction rv 19:15 Drug: fentaNYL (PF) 25 mcg {Note: rass 0.} Route: IVP; Site: right hand; rv 20:38 Follow up: Response: Pain is decreased rv 19:52 Drug: fentaNYL (PF) 25 mcg {Note: rass 0.} Route: IVP; Site: right upper arm; rv 20:38 Follow up: Pain 5/10 Adult; Response: No adverse reaction; Marked relief of symptoms; rv Pain is decreased; RASS: Alert and Calm (0) 21:08 Drug: Clindamycin 900 mg Route: IVPB; Infused Over: 30 mins; Site: right upper arm; rv 21:35 Follow up: Response: No adverse reaction; IV Status: Completed infusion mg2 21:08 Drug: Bactrim (160 mg-800 mg (DS) 1 tablet Route: PO; rv 21:34 Follow up: Response: No adverse reaction mg2 Disposition: 02/01/20 21:46 Discharged to Home. Impression: Cellulitis of groin, Cellulitis of abdominal wall. - Condition is Stable. - Discharge Instructions: Cellulitis, Adult. - Prescriptions for Clindamycin HCl 300 mg Oral Capsule - take 1 capsule by ORAL route every 6 hours for 10 days; 40 capsule. Bactrim DS 800- 160 mg Oral Tablet - take 1 tablet by ORAL route every 12 hours for 10 days; 20 tablet. Tylenol- Codeine #3 300-30 mg Oral Tablet - take 2 tablets by ORAL route every 6 hours As needed; 20 tablet. - Medication Reconciliation Form, Thank You Letter, Antibiotic Education, Prescription Opioid Use form. - Follow up: Private Physician; When: 2 - 3 days; Reason: Recheck today's complaints. - Problem is new. - Symptoms have improved. Addendum: 02/03/2020 09:51 Co-signature as Attending Physician, Spencer Razo MD I agree with the assessment and c steen plan of care. Signatures: Dispatcher [employer] Casandra Moss RN RN sv Anderson, Corey, MD MD cha Page, Corey, PA PA cp Gardose, Michele, RN RN mg2 Ronald Spann RN RN rv Corrections: (The following items were deleted from the chart) 01/31 20:41 20:40 Normal except: CL 109; GFR 76. cp cp 22:11 21:46 02/01/2020 21:46 Discharged to Home. Impression: Cellulitis of groin; Cellulitis mg2 of abdominal wall. Condition is Stable. Forms are Medication Reconciliation Form, Thank You Letter, Antibiotic Education, Prescription Opioid Use. Follow up: Private Physician; When: 2 - 3 days; Reason: Recheck today's complaints. Problem is new. Symptoms have improved. cp
--- NOTE | 2020-02-01 21:46 | ER ---
Nurse's Notes [facility] Name: Radha Wallace Age: 59 yrs Sex: Female : 1960 Arrival Date: 02/01/2020 Time: 16:47 Bed 7 Private MD: Diagnosis: Cellulitis of groin;Cellulitis of abdominal wall Presentation: 01/31 17:04 Chief complaint: Patient states: she had a cholecystectomy [address] Lindsay. sv Since yesterday she hasn't been able to urinate and her vagina is swollen. Pt reports that she took some of her moms Lasix to help her urinate as well but hasn't been able to. Coronavirus screen: Client denies travel out of the [place] in the last 14 days. At this time, the client does not indicate any symptoms associated with coronavirus-19. Ebola Screen: No symptoms or risks identified at this time. Risk Assessment: Do you want to hurt yourself or someone else? Patient reports no desire to harm self or others. Onset of symptoms was January 31, 2020. 17:04 Method Of Arrival: Ambulatory sv 17:04 Acuity: ALESSANDRO 3 sv 17:05 Initial Sepsis Screen: Does the patient meet any 2 criteria? No. Patient's initial sv sepsis screen is negative. Does the patient have a suspected source of infection? No. Patient's initial sepsis screen is negative. Historical: - Allergies: 17:05 No Known Allergies; sv - PMHx: 17:05 COPD; HEP C; sv - Immunization history:: Adult Immunizations unknown. - Social history:: Smoking status: unknown. Screenin:54 Abuse screen: Denies threats or abuse. Denies injuries from another. Nutritional rv screening: No deficits noted. Tuberculosis screening: No symptoms or risk factors identified. Fall Risk None identified. Assessment: 17:15 General: Appears uncomfortable, Behavior is calm, cooperative. General: Reports having rb1 a Isaura 10 days ago. Pain: Complains of pain in suprapubic area Pain currently is 10 out of 10 on a pain scale. Neuro: Level of Consciousness is awake, alert, obeys commands, Oriented to person, place, time, situation. Respiratory: Airway is patent Respiratory effort is even, unlabored, Respiratory pattern is regular, symmetrical. GI: No signs and/or symptoms were reported involving the gastrointestinal system. : Reports Having difficulty urinating. Derm: Skin is red, Suprapubic area. Musculoskeletal: Range of motion: intact in all extremities. 19:53 General: Appears uncomfortable, Behavior is calm, cooperative. Pain: Complains of pain rv in groin and suprapubic area. Neuro: Level of Consciousness is awake, alert, obeys commands, Oriented to person, place, time, situation. Cardiovascular: Patient's skin is warm and dry. Respiratory: Airway is patent Respiratory effort is even, unlabored. GI: Bowel sounds present X 4 quads. Abd is soft and non tender X 4 quads. : Swelling noted Reports pain suprapubic. Derm: Skin is intact. 21:33 Reassessment: Patient appears in no apparent distress at this time. Patient and/or mg2 family updated on plan of care and expected duration. Pain level reassessed. Patient is alert, oriented x 3, equal unlabored respirations, skin warm/dry/pink. Vital Signs: 17:05 BP 135 / 97; Pulse 109; Resp 20; Temp 97; Pulse Ox 100% ; Height 5 ft. 4 in. (162.56 sv cm); 19:00 BP 131 / 67; Pulse 78; Resp 17; Pulse Ox 99% on R/A; rv 19:30 BP 141 / 73; Pulse 81; Resp 17; Pulse Ox 97% on R/A; rv 20:36 BP 111 / 75; Pulse 84; Resp 18; Pulse Ox 97% on R/A; rv 20:38 Pain 5/10; rv 21:34 BP 111 / 72; Pulse 81; Resp 18; Pulse Ox 98% on R/A; mg2 ED Course: 16:47 Patient arrived in ED. mr 17:04 Arm band placed on. sv 17:05 Triage completed. sv 17:11 Spencer Velazquez PA is PHCP. cp 17:11 Dane Suazo MD is Attending Physician. cp 17:20 Bladder scan completed. 261mL. dh3 17:23 Gin Rodriguez, RN is Primary Nurse. rb1 18:40 Missed attempt(s): 22 gauge in right antecubital area. Bleeding controlled, band aid dh3 applied, catheter tip intact. 18:45 Inserted saline lock: 22 gauge in right hand, using aseptic technique. dh3 19:07 Primary Nurse role handed off by Gin Rodriguez RN mw2 19:38 Spencer Razo MD is Attending Physician. cp 19:43 Urine Microscopic Only Sent. mg2 19:49 Ronald Spann, BAKARI is Primary Nurse. rv 19:52 Inserted midline g18 x 10cm, right upper arm. rv 19:54 Patient has correct armband on for positive identification. Placed in gown. Bed in low rv position. Call light in reach. Side rails up X 1. Pulse ox on. NIBP on. 20:12 CT Abd/Pelvis - IV Contrast Only In Process Unspecified. EDMS 22:07 No provider procedures requiring assistance completed. IV discontinued, intact, rv bleeding controlled, No redness/swelling at site. Pressure dressing applied. Administered Medications: 19:15 Drug: Zofran (Ondansetron) 4 mg Route: PO; rv 20:38 Follow up: Response: No adverse reaction rv 19:15 Drug: fentaNYL (PF) 25 mcg {Note: rass 0.} Route: IVP; Site: right hand; rv 20:38 Follow up: Response: Pain is decreased rv 19:52 Drug: fentaNYL (PF) 25 mcg {Note: rass 0.} Route: IVP; Site: right upper arm; rv 20:38 Follow up: Pain 5/10 Adult; Response: No adverse reaction; Marked relief of symptoms; rv Pain is decreased; RASS: Alert and Calm (0) 21:08 Drug: Clindamycin 900 mg Route: IVPB; Infused Over: 30 mins; Site: right upper arm; rv 21:35 Follow up: Response: No adverse reaction; IV Status: Completed infusion mg2 21:08 Drug: Bactrim (160 mg-800 mg (DS) 1 tablet Route: PO; rv 21:34 Follow up: Response: No adverse reaction mg2 Outcome: 21:46 Discharge ordered by . cp 22:11 Discharged to home via wheelchair, with family. mg2 22:11 Condition: stable 22:11 Discharge instructions given to patient, family, Instructed on discharge instructions, follow up and referral plans. medication usage, Demonstrated understanding of instructions, follow-up care, medications, Choe Catheter care Prescriptions given X 3. 22:11 Patient left the ED. mg2 Signatures: Dispatcher [employer] EDNV Casandra Florence RN RN sv Rivera, Mary mr Spencer Velazquez PA PA cp Barber, Rebecca, RN RN [facility] Areli Stafford [facility] Jomar Azar RN RN [facility] Ronald Spann RN RN Corrections: (The following items were deleted from the chart) 17:07 17:04 Chief complaint: Patient states: she had a cholecystectomy [address] lila Lindsay. Since yesterday she hasn't been able to urinate and her vagina is swollen. sv
[2020-02-01 22:16] VITALS: TEMP 97
[2020-02-01 22:30] VITALS: BP 111/72; O2SAT 98
== END 2020-02-01 22:11 | disposition home or self-care (01) ==
LOC: ER 16:44
DX: L03.314 Cellulitis of groin (principal); L03.311 Cellulitis of abdominal wall; Z90.49 Acquired absence of other specified parts of digestive tract
CPT/HCPCS: 85025; 80048; 36415; 82565; 80076; 83690; 74177; 99284; Q9967; J3010; J2405 ×2; 81003; 81015

== ENCOUNTER 2020-02-09 10:13 | Emergency (ER) | payer MEDICARE ==
[2020-02-09 11:34] LABS: Absolute Lymphocytes (CBC) 0.6 K/uL (0.7-4.9); Basophils % 0.5 % (0-1.3); Hematocrit 41.7 % (36.0-45.0); Lymphocytes % 18.1 % (15.3-44.8); MPV 9.1 fL (7.6-11.3); RBC Red Blood Cell Count 4.14 M/uL (3.86-4.86)
[2020-02-09 11:35] LABS: Protime INR 1.03
[2020-02-09] MEDS ORDERED: ONDANSETRON 4 MG/2 ML VIAL ONE (11:37)
[2020-02-09] MEDS ORDERED: MORPHINE 4 MG/ML SYR ONE (11:37)
[2020-02-09] MEDS ORDERED: FUROSEMIDE 100 MG/10 ML VIAL IV ONE (11:38)
[2020-02-09 11:51] LABS: ALT/SGPT 77 U/L (12-78); AST/SGOT 103 U/L (15-37); Albumin 3.1 g/dL (3.4-5.0); Alkaline Phosphatase 113 U/L (45-117); BUN Blood Urea Nitrogen 9 mg/dL (7-18); Bicarbonate 26 mmol/L (21-32); Bilirubin Direct 0.2 mg/dL (0-0.2); Bilirubin Total 0.5 mg/dL (0.2-1.0); Glucose Level 80 mg/dL (74-106); NT PRO-BNP 130 pg/mL (<125); Potassium 4.2 mmol/L (3.5-5.1); Protein, Total 6.2 g/dL (6.4-8.2); Sodium Level 134 mmol/L (136-145); Troponin (Emerg Dept Use Only) < 0.02 ng/mL (0.0-0.045)
--- NOTE | 2020-02-09 12:12 | RAD REPORT ---
EXAM DESCRIPTION: US - Extrem Venous W Compress Sebastian - 02/09/2020 12:05 pm CLINICAL HISTORY: Pain;Swelling COMPARISON: None. TECHNIQUE: Real-time sonographic evaluation of the bilateral lower extremity common femoral, superfi cial femoral, popliteal and posterior tibial veins was performed. FINDINGS: Normal compressibility, flow augmentation, phasic flow and spontaneous flow are identified in the left and right lower extremity common femoral, superficial femoral, popliteal and posterior t ibial veins. No intraluminal filling defects seen. IMPRESSION: No DVT in either lower extremity.
--- NOTE | 2020-02-09 12:16 | RAD REPORT ---
EXAM DESCRIPTION: RAD - Chest Single View - 02/09/2020 11:03 am CLINICAL HISTORY: DYSPNEA TECHNIQUE: AP portable chest image was obtained 02/09/2020 11:03 am . FINDINGS: Lungs are slightly underinflated. Right hemidiaphragm is elevated creating chronic lung ba se atelectasis. No failure or volume overload. Heart and vasculature are normal. No measurable pleura l effusion and no pneumothorax. No acute bony abnormality seen. No acute aortic findings suspected. IMPRESSION: No acute cardiopulmonary process.
[2020-02-09 12:33] LABS: Urine Blood NEGATIVE (NEG); Urine Glucose NEGATIVE (NEG); Urine Protein NEGATIVE (NEG); Urine pH 5.5 (5.0-7.0)
--- NOTE | 2020-02-09 12:57 | RAD REPORT ---
EXAM DESCRIPTION: CT - Abdomen Pelvis W Contrast - 02/09/2020 12:26 pm CLINICAL HISTORY: Abd pain;Abdominal distention COMPARISON: Abdomen Pelvis W Contrast dated 02/01/2020 TECHNIQUE: Biphasic, helical CT imaging of the abdomen and pelvis was performed following 100 ml non -ionic IV contrast. No oral contrast administered. All CT scans are performed using dose optimization technique as appropriate and may include automated exposure control or mA/KV adjustment according to patient size. FINDINGS: Right lung base atelectasis present. No acute lung base finding. No pericardial effusion o r cardiomegaly. Left lobe liver cyst has not changed. No solid mass lesion of the liver seen. Liver size is small wit h nodular capsule contour. Pattern is similar to the January 31 study. No new spleen finding. No panc reatitis or acute pancreatic process seen. Cholecystectomy clips are present with no biliary tree dil atation. No focal abnormality in the gallbladder fossa. Symmetric renal function is seen with no hydronephrosis or suspicious renal mass. No pyelonephritis o r acute parenchymal process. No bladder abnormalities. No adrenal abnormalities. Uterus is absent. So ft tissue prominence of the vaginal cuff has not changed. Ovaries are absent or atrophic. No adnexal mass. No dilated bowel loops or bowel wall thickening. Minimal diverticulosis present without diverticuliti s. No free air or pneumatosis. No focal inflammatory stranding. No mass or bulky lymphadenopathy. Re cannulized umbilical vein noted. Fluid retention noted in the subcutaneous fatty tissues. Moderate as cites is present. Volume is similar to January 31. No acute bone finding. Portal vein the splenic vein enhance normally. No IVC abnormality. Common femoral and iliac arteries and veins also without acute finding. IMPRESSION: Liver cirrhosis and ascites findings are similar to the January 31 study. No acute or emergent finding identifiable.
--- NOTE | 2020-02-09 14:04 | ER ---
Nurse's Notes [facility] Name: Radha Wallace Age: 59 yrs Sex: Female : 1960 Arrival Date: 02/09/2020 Time: 10:14 Bed 2 Private MD: Diagnosis: Shortness of breath Presentation: 02/08 10:22 Chief complaint: Patient states: had gallbladder removed and liver biopsy on Jan [address] Lindsay , developed swelling in her legs and cellulitis last week , was sent home with abx and carlson catheter in place for urine retention, catheter removed yesterday by pt because she was having a lot of burning, was able to urinate this morning on her own, is having increased abd swelling and leg swelling and SOB, hx of Hep c. Coronavirus screen: At this time, the client does not indicate any symptoms associated with coronavirus-19. Ebola Screen: Patient negative for fever greater than or equal to 101.5 degrees Fahrenheit, and additional compatible Ebola Virus Disease symptoms Patient denies exposure to infectious person. Patient denies travel to an Ebola-affected area in the 21 days before illness onset. No symptoms or risks identified at this time. Initial Sepsis Screen: Does the patient meet any 2 criteria? No. Patient's initial sepsis screen is negative. Does the patient have a suspected source of infection? No. Patient's initial sepsis screen is negative. Risk Assessment: Do you want to hurt yourself or someone else? Patient reports no desire to harm self or others. Onset of symptoms was February 02, 2020. 10:22 Method Of Arrival: Ambulatory iw 10:22 Acuity: ALESSANDRO 3 iw Historical: - Allergies: 10:26 No Known Allergies; iw - Home Meds: 10:26 Clindamycin Oral [Active]; Bactrim DS Oral [Active]; iw - PMHx: 10:26 COPD; HEP C; iw - PSHx: 10:26 Cholecystectomy; liver biposy; Hysterectomy; Bladder suspension; iw - Immunization history:: Adult Immunizations up to date. - Social history:: Smoking status: Patient reports the use of cigarette tobacco products, smokes one-half pack cigarettes per day. Screenin:19 Abuse screen: Denies threats or abuse. Denies injuries from another. Nutritional ss screening: No deficits noted. Tuberculosis screening: Never had TB. Fall Risk No fall in past 12 months (0 pts). No secondary diagnosis (0 pts). IV access (20 points). Ambulatory Aid- None/Bed Rest/Nurse Assist (0 pts). Gait- Normal/Bed Rest/Wheelchair (0 pts) Mental Status- Oriented to own ability (0 pts). Assessment: 11:00 General: Appears uncomfortable, Behavior is calm, cooperative, Denies fatigue. Pain: ss Complains of pain in abdomen Pain currently is 6 out of 10 on a pain scale. at worst was 8 out of 10 on a pain scale. Quality of pain is described as aching, crampy, Is intermittent. Neuro: Level of Consciousness is awake, alert, obeys commands, Oriented to person, place, time, situation. Cardiovascular: Capillary refill < 3 seconds is brisk in bilateral toes Rhythm is sinus tachycardia Chest pain is denied. Cardiovascular: Denies chest pain, lightheadedness, palpitations, Edema pitting to left midcalf, left ankle, left foot, left toes, right midcalf, right ankle, right foot and right toes. Respiratory: Airway is patent Respiratory effort is even, unlabored, Respiratory pattern is regular, symmetrical, Breath sounds are clear bilaterally. Denies cough, shortness of breath pain with respiration, pain with cough, pain with movement. GI: Reports abd bloating that began shortly after roel surgery last month Patient currently denies diarrhea, nausea, vomiting. GI: Abdomen is round distended, noted to have ascites. : Denies burning with urination, urinary frequency. EENT: Oral mucosa is moist. Derm: Skin is skin is pink in general/ dry. Multiple small bruises in various stages of healing noted to bilateral upper extremities. Musculoskeletal: Range of motion: intact in all extremities. 12:10 Reassessment: Pt to restroom VIA wheelchair. Urine specimen obtained. Pt states that ss her pain has decreased after Morphine administration. 12:18 Reassessment: Pt to CT at this time VIA wheelchair. ss 13:23 Reassessment: Patient appears in no apparent distress at this time. Patient and/or ss family updated on plan of care and expected duration. Pain level reassessed. Patient is alert, oriented x 3, equal unlabored respirations, skin warm/dry/pink. awaiting disposition. 14:16 Reassessment: Patient appears in no apparent distress at this time. Patient and/or iw family updated on plan of care and expected duration. Pain level reassessed. Patient is alert, oriented x 3, equal unlabored respirations, skin warm/dry/pink. Patient states feeling better. Patient states symptoms have improved. Vital Signs: 10:22 BP 120 / 89; Pulse 103; Resp 20 S; Temp 97.7; Pulse Ox 100% on R/A; Weight 86.18 kg; iw Height 5 ft. 4 in. (162.56 cm); 13:18 Temp 97.9(O); mh5 13:19 BP 114 / 82; Pulse 75; Resp 20; Pulse Ox 99% on R/A; mh5 10:22 Body Mass Index 32.61 (86.18 kg, 162.56 cm) iw ED Course: 10:14 Patient arrived in ED. as 10:19 Jai Hargrove MD is Attending Physician. kdr 10:25 Triage completed. iw 10:27 Arm band placed on. iw 10:55 Nisa Matthew, BAKARI is Primary Nurse. ss 11:04 XRAY Chest (1 view) In Process Unspecified. EDMS 11:15 Inserted saline lock: 22 gauge in left antecubital area, using aseptic technique. Blood ss collected. 11:41 Patient has correct armband on for positive identification. Bed in low position. Call mh5 light in reach. Side rails up X2. Warm blanket given. teletypesetter monitor on. Pulse ox on. NIBP on. 11:41 LFT's Sent. 5 12:05 US Extremity Venous W Compression Sebastian In Process Unspecified. EDMS 12:26 CT Abd/Pelvis - IV Contrast Only In Process Unspecified. EDMS 14:17 No provider procedures requiring assistance completed. IV discontinued, intact, iw bleeding controlled, No redness/swelling at site. Pressure dressing applied. Administered Medications: 11:35 Drug: Zofran (Ondansetron) 4 mg Route: IVP; Site: left antecubital; ss 12:23 Follow up: Response: No adverse reaction ss 11:36 Drug: morphine 4 mg Route: IVP; Site: left antecubital; ss 12:23 Follow up: Response: No adverse reaction; Pain is decreased ss 11:39 Drug: Lasix 60 mg Route: IVP; Site: left antecubital; ss 13:02 Follow up: Response: No adverse reaction; No adverse reaction, urine output increased ss Outcome: 14:04 Discharge ordered by . huan 14:25 Patient left the ED. iw Signatures: Dispatcher [employer] Jai Harley MD MD kdr Martinez, Amelia as Williams, Irene, RN BAKARI Nisa Matthew RN RN ss Martinez, Maria mh5 Corrections: (The following items were deleted from the chart) 13:08 11:00 GI: Abdomen is round distended, ss ss
--- NOTE | 2020-02-09 14:04 | EDPHYS ---
Physician Documentation [facility] Name: Radha Wallace Age: 59 yrs Sex: Female : 1960 Arrival Date: 02/09/2020 Time: 10:14 Bed 2 Private MD: ED Physician Jai Hargrove HPI: 02/08 17:58 This 59 yrs old Female presents to ER via Ambulatory with complaints of kdr Shortness Of Breath. 17:58 The patient has shortness of breath at rest, with light activity. Onset: The kdr symptoms/episode began/occurred gradually, 1 month(s) ago. Duration: The symptoms are continuous, and are steadily getting worse. The patient's shortness of breath is aggravated by coughing, exertion, light activity. Associated signs and symptoms: The patient has no apparent associated signs or symptoms, Pertinent positives: Pertinent negatives: chest pain, non-productive cough, productive cough, diaphoresis, dizziness, fever, hemoptysis, loss of consciousness, nausea, numbness in extremities, visual changes, vomiting. Severity of symptoms: At their worst the symptoms were moderate in the emergency department the symptoms are unchanged. The patient has experienced similar episodes in the past, chronically, but today's symptoms are worse. The patient has been recently seen by a physician: The patient had her GB removed on 01/[address] Lindsay. Since then, she has had increasing swelling of her lower extremities and her abdomen. In the last few days, it has become hard to breath and she feeling the swelling is effecting her ability to get a breath.. Historical: - Allergies: 10:26 No Known Allergies; iw - Home Meds: 10:26 Clindamycin Oral [Active]; Bactrim DS Oral [Active]; iw - PMHx: 10:26 COPD; HEP C; iw - PSHx: 10:26 Cholecystectomy; liver biposy; Hysterectomy; Bladder suspension; iw - Immunization history:: Adult Immunizations up to date. - Social history:: Smoking status: Patient reports the use of cigarette tobacco products, smokes one-half pack cigarettes per day. ROS: 17:58 Constitutional: Negative for fever, chills, and weight loss, Eyes: Negative for injury, kdr pain, redness, and discharge, Neck: Negative for injury, pain, and swelling, Cardiovascular: Negative for chest pain, palpitations, and edema, Back: Negative for injury and pain, Skin: Negative for injury, rash, and discoloration, Neuro: Negative for headache, weakness, numbness, tingling, and seizure activity. Psych: Negative for depression, anxiety, suicide ideation, homicidal ideation, and hallucinations, Allergy/Immunology: Negative for hives, rash, and allergies, Endocrine: Negative for neck swelling, polydipsia, polyuria, polyphagia, and marked weight changes, Hematologic/Lymphatic: Negative for swollen nodes, abnormal bleeding, and unusual bruising. 17:58 Respiratory: Positive for dyspnea on exertion, shortness of breath, Negative for cough, hemoptysis, orthopnea, pleurisy, sputum production, wheezing. 17:58 Abdomen/GI: Positive for nausea, abdominal distension, Negative for black/tarry stool, rectal pain, rectal bleeding, bowel incontinence. Exam: 11:50 ECG was reviewed by the Attending Physician. kdr 17:58 Constitutional: This is a well developed, well nourished patient who is awake, alert, kdr and in no acute distress. Head/Face: Normocephalic, atraumatic. Eyes: Pupils equal round and reactive to light, extra-ocular motions intact. Lids and lashes normal. Conjunctiva and sclera are non-icteric and not injected. Cornea within normal limits. Periorbital areas with no swelling, redness, or edema. Neck: Trachea midline, no thyromegaly or masses palpated, and no cervical lymphadenopathy. Supple, full range of motion without nuchal rigidity, or vertebral point tenderness. No Meningismus. Chest/axilla: Normal chest wall appearance and motion. Nontender with no deformity. No lesions are appreciated. Cardiovascular: Regular rate and rhythm with a normal S1 and S2. No gallops, murmurs, or rubs. Normal PMI, no JVD. No pulse deficits. Respiratory: Lungs have equal breath sounds bilaterally, clear to auscultation and percussion. No rales, rhonchi or wheezes noted. No increased work of breathing, no retractions or nasal flaring. Back: No spinal tenderness. No costovertebral tenderness. Full range of motion. Skin: Warm, dry with normal turgor. Normal color with no rashes, no lesions, and no evidence of cellulitis. Neuro: Awake and alert, GCS 15, oriented to person, place, time, and situation. Cranial nerves II-XII grossly intact. Motor strength 5/5 in all extremities. Sensory grossly intact. Cerebellar exam normal. Normal gait. Psych: Awake, alert, with orientation to person, place and time. Behavior, mood, and affect are within normal limits. 17:58 Abdomen/GI: Inspection: distension, that is moderate, obese Bowel sounds: diminished, in all quadrants, Palpation: Firm without rebound or guarding. Vital Signs: 10:22 BP 120 / 89; Pulse 103; Resp 20 S; Temp 97.7; Pulse Ox 100% on R/A; Weight 86.18 kg; iw Height 5 ft. 4 in. (162.56 cm); 13:18 Temp 97.9(O); mh5 13:19 BP 114 / 82; Pulse 75; Resp 20; Pulse Ox 99% on R/A; mh5 10:22 Body Mass Index 32.61 (86.18 kg, 162.56 cm) iw MDM: 14:04 Patient medically screened. kdr 17:58 Data reviewed: vital signs, nurses notes, lab test result(s), radiologic studies. kdr Counseling: I had a detailed discussion with the patient and/or guardian regarding: the historical points, exam findings, and any diagnostic results supporting the discharge/admit diagnosis, lab results, radiology results, the need for outpatient follow up. ED course: The patient felt much improved with the interventions given. She was happy with the care provided and the plan for discharge and follow-up. 02/08 10:43 Order name: Basic Metabolic Panel [facility] 02/08 10:43 Order name: CBC with Diff; Complete Time: 11:51 [facility] 02/08 10:43 Order name: LFT's kdr 02/08 10:43 Order name: Magnesium; Complete Time: 12:48 [facility] 02/08 10:43 Order name: NT PRO-BNP; Complete Time: 12:48 [facility] 02/08 10:43 Order name: PT-INR; Complete Time: 11:51 [facility] 02/08 10:43 Order name: Troponin (emerg Dept Use Only); Complete Time: 12:48 [facility] 02/08 10:43 Order name: XRAY Chest (1 view); Complete Time: 12:48 [facility] 02/08 10:43 Order name: Lactate; Complete Time: 12:48 kdr 02/08 10:43 Order name: Procalcitonin; Complete Time: 12:48 kdr 02/08 10:44 Order name: Basic Metabolic Panel; Complete Time: 12:48 EDMS 02/08 10:44 Order name: Liver (Hepatic) Function; Complete Time: 12:48 EDMS 02/08 10:58 Order name: Blood Culture Adult (2) iw 02/08 12:25 Order name: Urine Dipstick--Ancillary (enter results); Complete Time: 12:48 em1 02/08 10:43 Order name: EKG; Complete Time: 10:44 kdr 02/08 10:43 Order name: Cardiac monitoring; Complete Time: 11:40 kdr 02/08 10:43 Order name: EKG - Nurse/Tech; Complete Time: 11:40 kdr 02/08 10:43 Order name: IV Saline Lock; Complete Time: 11:40 kdr 02/08 10:43 Order name: Labs collected and sent; Complete Time: 11:40 kdr 02/08 10:43 Order name: O2 Per Protocol; Complete Time: 11:40 kdr 02/08 10:43 Order name: O2 Sat Monitoring; Complete Time: 11:40 kdr 02/08 10:45 Order name: Urine Dipstick-Ancillary (obtain specimen): Cath; Complete Time: 12:23 kdr 02/08 11:01 Order name: CT Abd/Pelvis - IV Contrast Only; Complete Time: 13:16 kdr 02/08 11:01 Order name: US Extremity Venous W Compression Sebastian; Complete Time: 12:48 kdr EC:50 Rate is 80 beats/min. Rhythm is regular, Normal Sinus Rhythm with No ectopy. QRS [place] kdr is Normal. Right axis deviation noted. NE interval is normal. QRS interval is normal. QT interval is normal. Clinical impression: NSR w/ Non-specific ST/T Changes. Administered Medications: 11:35 Drug: Zofran (Ondansetron) 4 mg Route: IVP; Site: left antecubital; ss 12:23 Follow up: Response: No adverse reaction ss 11:36 Drug: morphine 4 mg Route: IVP; Site: left antecubital; ss 12:23 Follow up: Response: No adverse reaction; Pain is decreased ss 11:39 Drug: Lasix 60 mg Route: IVP; Site: left antecubital; ss 13:02 Follow up: Response: No adverse reaction; No adverse reaction, urine output increased ss Disposition: 02/09/20 14:04 Discharged to Home. Impression: Shortness of breath. - Condition is Stable. - Discharge Instructions: Ascites, Shortness of Breath, Vimu-ys-Fiin, Hepatitis C, [id number], Liver Failure. - Prescriptions for Aldactone 25 mg Oral tablet - take 1 tablet by ORAL route 2 times per day; 30 tablet. - Medication Reconciliation Form, Thank You Letter form. - Follow up: Private Physician; When: 2 - 3 days; Reason: If symptoms return, Further diagnostic work-up, Recheck today's complaints, Continuance of care, Re-evaluation by your physician. - Problem is new. - Symptoms have improved. - Notes: 1,500 ml fluid restriciton Signatures: Dispatcher [employer] EDMS Jai Hargrove MD MD kdr Meg Cross RN RN iw Nisa Matthew RN RN ss Corrections: (The following items were deleted from the chart) 14:25 14:04 02/09/2020 14:04 Discharged to Home. Impression: Shortness of breath. Condition iw is Stable. Forms are Medication Reconciliation Form, Thank You Letter, Antibiotic Education, Prescription Opioid Use. Follow up: Private Physician; When: 2 - 3 days; Reason: If symptoms return, Further diagnostic work-up, Recheck today's complaints, Continuance of care, Re-evaluation by your physician. Problem is new. Symptoms have improved. kdr
[2020-02-09 14:37] VITALS: TEMP 97.9
[2020-02-09 14:39] VITALS: BP 114/82; O2SAT 99
== END 2020-02-09 14:25 | disposition home or self-care (01) ==
LOC: ER 10:13
DX: R06.02 Shortness of breath (principal); J44.9 Chronic obstructive pulmonary disease, unspecified; F17.210 Nicotine dependence, cigarettes, uncomplicated; Z90.49 Acquired absence of other specified parts of digestive tract
CPT/HCPCS: 93005; 87040 ×2; 85025; 80048; 36415; 83735; 85610; 80076; 83605; 81003; 84484; 84145; 83880; 74177; 71045; 93970; 96375; 96374; 99284; Q9967; J2405

== ENCOUNTER 2020-04-13 13:56 | Emergency (ER) | payer SELFPAY ==
--- NOTE | 2020-04-13 20:22 | ER ---
Nurse's Notes [facility] Name: Radha Wallace Age: 59 yrs Sex: Female : 1960 Arrival Date: 04/13/2020 Time: 13:59 Bed Waiting Private MD: Diagnosis: Presentation: 04/13 14:07 Chief complaint: Patient states: had a cholecystectomy [address] Lindsay and has sv had abd swelling since then but the past 2 days her stomach has become hard and is unable to sit down or urinate. Was seen here for the abd swelling but was told she had edema and was discharged. Coronavirus screen: Client denies travel out of the [place] in the last 14 days. At this time, the client does not indicate any symptoms associated with coronavirus-19. Ebola Screen: No symptoms or risks identified at this time. Risk Assessment: Do you want to hurt yourself or someone else? Patient reports no desire to harm self or others. Onset of symptoms was January 2020. 14:07 Method Of Arrival: Ambulatory sv 14:07 Acuity: ALESSANDRO 3 sv 14:09 Initial Sepsis Screen: Does the patient meet any 2 criteria? No. Patient's initial sv sepsis screen is negative. Does the patient have a suspected source of infection? No. Patient's initial sepsis screen is negative. Triage Assessment: 14:11 General: Appears in no apparent distress. uncomfortable, Behavior is calm, cooperative, sv appropriate for age. Pain: Complains of pain in abdomen. Neuro: Level of Consciousness is awake, alert, obeys commands, Oriented to person, place, time, situation, Gait is steady. Respiratory: Respiratory effort is even, unlabored. GI: Abdomen is round distended. Historical: - Allergies: 14:09 No Known Allergies; sv - PMHx: 14: COPD; HEP C; sv - PSHx: 14:09 Cholecystectomy; liver biposy; Hysterectomy; Bladder suspension; sv Vital Signs: 14: BP 122 / 85; Pulse 95; Resp 20; Temp 97.1(TE); Pulse Ox 99% on R/A; Weight 88.45 kg; sv Height 5 ft. 5 in. (165.10 cm); Pain 7/10; 14:09 Body Mass Index 32.45 (88.45 kg, 165.10 cm) sv ED Course: 13:59 Patient arrived in ED. rg4 14:09 Triage completed. sv 14:11 Arm band placed on. sv 20:02 Patient's name was called from ER lobby. No response. Unable to locate patient. Will ca1 disposition as left without being seen by a provider. Administered Medications: No medications were administered Outcome: 20:22 Patient left the ED. ca1 Signatures: Casandra Florence RN RN sv Latonya Lockhart rg4 Caren Singer RN RN ca1 Corrections: (The following items were deleted from the chart) 14:11 14:07 Chief complaint: Patient states: had a cholecystectomy [address] Lindsay and sv has had abd swelling since then but the past 2 days her stomach has become hard and is unable to sit down or urinate. sv
[2020-04-13 20:26] VITALS: BP 122/85; TEMP 97.1; O2SAT 99
== END 2020-04-13 20:22 | disposition left against medical advice (07) ==
LOC: ER 13:56
DX: Z53.21 Procedure and treatment not carried out due to patient leaving prior to being seen by health care provider (principal)
CPT/HCPCS: 99281

== ENCOUNTER 2020-04-29 11:47 | Emergency (ER) | payer MEDICARE ==
[2020-04-29] MEDS ORDERED: MEPERIDINE HCL 25 MG/ML SYR ONE (13:06)
[2020-04-29] MEDS ORDERED: ALBUMIN HUMAN 25% 0 ML IV ONE (14:29)
[2020-04-29] MEDS ORDERED: ALBUMIN HUMAN 25% 300 ML IV ONE (15:00)
--- NOTE | 2020-04-29 15:58 | ER ---
Nurse's Notes [facility] Name: Radha Wallace Age: 59 yrs Sex: Female : 1960 Arrival Date: 04/29/2020 Time: 11:50 Bed 7 Private MD: Diagnosis: Ascites Presentation: 04/29 12:03 Chief complaint: Patient states: Abdominal bloating since February. Saw Dr. Lindsay ll1 today, he sent her in for paracentesis. + nausea. Coronavirus screen: Client denies travel out of the [place] in the last 14 days. At this time, the client does not indicate any symptoms associated with coronavirus-19. Ebola Screen: Patient denies travel to an Ebola-affected area in the 21 days before illness onset. Initial Sepsis Screen: Does the patient meet any 2 criteria? HR > 90 bpm. No. Patient's initial sepsis screen is negative. Does the patient have a suspected source of infection? Yes: Acute abdominal pain. Risk Assessment: Do you want to hurt yourself or someone else? Patient reports no desire to harm self or others. Onset of symptoms was February 23, 2020. 12:03 Method Of Arrival: Ambulatory ll1 12:03 Acuity: ALESSANDRO 3 ll1 Historical: - Allergies: 12:03 No Known Allergies; ll1 - PMHx: 12:03 COPD; HEP C; ll1 - PSHx: 12:03 Cholecystectomy; liver biposy; Hysterectomy; Bladder suspension; ll1 - Immunization history:: Flu vaccine is up to date. - Social history:: Smoking status: Patient reports the use of cigarette tobacco products, smokes one-half pack cigarettes per day. - Family history:: not pertinent. - Hospitalizations: : No recent hospitalization is reported. Screenin:55 Abuse screen: Denies threats or abuse. Denies injuries from another. Nutritional sv screening: No deficits noted. Tuberculosis screening: No symptoms or risk factors identified. Fall Risk None identified. Assessment: 12:32 Reassessment: Pt attempting to call her GI to see if he wants her to stay in the ER or sv if he can see her in the office tomorrow. 12:50 General: Appears in no apparent distress. uncomfortable, Behavior is calm, cooperative, sv appropriate for age. Pain: Complains of pain in abdomen Pain currently is 6 out of 10 on a pain scale. Neuro: Level of Consciousness is awake, alert, obeys commands, Oriented to person, place, time, situation, Gait is steady. Respiratory: Respiratory effort is even, unlabored, Respiratory pattern is regular, symmetrical. GI: Abdomen is distended, noted to have ascites. Derm: Skin is pink, warm \T\ dry. Musculoskeletal: Range of motion: intact in all extremities. 13:36 Reassessment: Pt currently still in radiology for paracentesis. sv 14:05 Reassessment: Pt back from paracentesis procedure. 7L of fluids removed. sv 14:22 Reassessment: Patient appears in no apparent distress at this time. Patient and/or sv family updated on plan of care and expected duration. Pain level reassessed. Patient is alert, oriented x 3, equal unlabored respirations, skin warm/dry/pink. Patient states feeling better. Patient states symptoms have improved. Respiratory: Denies shortness of breath. 16:19 Reassessment: Patient appears in no apparent distress at this time. Patient and/or sv family updated on plan of care and expected duration. Pain level reassessed. Patient is alert, oriented x 3, equal unlabored respirations, skin warm/dry/pink. Patient denies pain at this time. Patient states feeling better. Patient states symptoms have improved. Vital Signs: 12:03 BP 121 / 90; Pulse 95; Resp 18; Temp 97.0; Pulse Ox 97% ; Weight 83.91 kg; Height 5 ft. ll1 6 in. (167.64 cm); Pain 6/10; 14:36 BP 122 / 96; Pulse 86; Resp 16; sv 15:29 BP 105 / 80; Pulse 77; Resp 16; Pulse Ox 99% ; sv 16:19 BP 109 / 81; Pulse 72; Resp 16; Pulse Ox 99% ; sv 12:03 Body Mass Index 29.86 (83.91 kg, 167.64 cm) ll1 ED Course: 11:50 Patient arrived in ED. mr 12:02 Arm band placed on. ll1 12:05 Triage completed. ll1 12:16 Dane Suazo MD is Attending Physician. rn 12:18 Casandra Florence RN is Primary Nurse. sv 12:55 Patient moved to radiology via wheelchair. sv 12:55 Patient has correct armband on for positive identification. Placed in gown. Bed in low sv position. Call light in reach. 13:50 Paracentesis Proc Guidance In Process Unspecified. EDMS 14:10 Inserted saline lock: 22 gauge in left hand, using aseptic technique. Flushed left hand sv with 5 ml normal saline. 16:19 No provider procedures requiring assistance completed. IV discontinued, intact, sv bleeding controlled, No redness/swelling at site. Pressure dressing applied. Administered Medications: 12:55 CANCELLED (Physician Discretion): Demerol 25 mg IVP once; RASS on ADMIN: Combtv4, Very sv Agttd3, Agttd2, Rstlss1, AlertClm0, Drwsy-1, Lt Sdtn-2, Mod Sdtn-3, Dp Sdtn-4, UnArsble-5 12:55 Drug: Demerol 25 mg {Note: rass1.} Route: IM; Site: left deltoid; sv 14:18 Follow up: Response: No adverse reaction; Pain is decreased; RASS: Alert and Calm (0) sv 14:25 Drug: Albumin 75 grams Volume: 100 ml; Route: IVPB; Site: left hand; sv 16:10 Follow up: Response: No adverse reaction; IV Status: Completed infusion; IV Intake: sv 300ml Intake: 16:10 IV: 300ml; Total: 300ml. sv Outcome: 15:58 Discharge ordered by . rn 16:19 Discharged to home ambulatory. sv 16:19 Condition: stable 16:19 Discharge instructions given to patient, Instructed on discharge instructions, follow up and referral plans. Demonstrated understanding of instructions, follow-up care. 16:19 Patient left the ED. sv Signatures: Dispatcher [employer] EDCasandra Zaidi, RN RN Virginia Sesay Roman, MD MD rn Lewis, Lynsay, RN RN ll1
--- NOTE | 2020-04-29 15:59 | EDPHYS ---
Physician Documentation [facility] Name: Radha Wallace Age: 59 yrs Sex: Female : 1960 Arrival Date: 04/29/2020 Time: 11:50 Bed 7 Private MD: ED Physician Dane Suazo HPI: 04/29 12:53 This 59 yrs old Female presents to ER via Ambulatory with complaints of rn Abdominal Swelling. 12:53 The patient presents with abdominal distention that is diffuse. Onset: The rn symptoms/episode began/occurred 3 month(s) ago. The symptoms do not radiate. Associated signs and symptoms:. 13:08 The symptoms are described as dull, intermittent. Modifying factors: The symptoms are rn alleviated by nothing, the symptoms are aggravated by pressure and supine position. Severity of pain: At its worst the pain was moderate in the emergency department the pain is unchanged. The patient has experienced similar episodes in the past. The patient has been recently seen by a physician:. Historical: - Allergies: 12:03 No Known Allergies; ll1 - PMHx: 12:03 COPD; HEP C; ll1 - PSHx: 12:03 Cholecystectomy; liver biposy; Hysterectomy; Bladder suspension; ll1 - Immunization history:: Flu vaccine is up to date. - Social history:: Smoking status: Patient reports the use of cigarette tobacco products, smokes one-half pack cigarettes per day. - Family history:: not pertinent. - Hospitalizations: : No recent hospitalization is reported. ROS: 13:08 Constitutional: Negative for fever, chills, and weight loss, Eyes: Negative for injury, rn pain, redness, and discharge, Cardiovascular: Negative for chest pain, palpitations Respiratory: Negative for shortness of breath, cough, wheezing, and pleuritic chest pain, Abdomen/GI: + abdominal distension Back: Negative for injury and pain, MS/Extremity: Negative for injury and deformity, Skin: Negative for injury, rash, and discoloration, Neuro: Negative for headache, weakness, numbness, tingling, and seizure. Exam: 13:08 Constitutional: This is a well developed, well nourished patient who is awake, alert, rn and in no acute distress. Abdomen/GI: firm, non-tender, no skin changes, no peritoneal signs, + large fluid wave. Vital Signs: 12:03 BP 121 / 90; Pulse 95; Resp 18; Temp 97.0; Pulse Ox 97% ; Weight 83.91 kg; Height 5 ft. ll1 6 in. (167.64 cm); Pain 6/10; 14:36 BP 122 / 96; Pulse 86; Resp 16; sv 15:29 BP 105 / 80; Pulse 77; Resp 16; Pulse Ox 99% ; sv 16:19 BP 109 / 81; Pulse 72; Resp 16; Pulse Ox 99% ; sv 12:03 Body Mass Index 29.86 (83.91 kg, 167.64 cm) ll1 MDM: 12:16 Patient medically screened. rn 12:30 ED course: Consulted with Dr. Cleveland, states will consult on patient, requests rn paracentesis ordered via radiology. . 12:51 ED course: Tashia Lindsay called, wants to see if patient can get paracentesis in ER, then learning and development associate as he has setup outpt appt tomorrow with GI. Spoke with Tashia Montes De Oca, states can get it done right now. . 14:00 ED course: Pt back from paracentesis, had 7 L removed, feels much better, thankful, rn will get albumin infusion, repeat vitals, and dc home if continues to feel well. Has GI f/u in [place] tomorrow. . 15:57 Differential diagnosis: ascites, cirrhosis. Data reviewed: vital signs, nurses notes, rn old medical records, and as a result, I will discharge patient. Counseling: I had a detailed discussion with the patient and/or guardian regarding: the historical points, exam findings, and any diagnostic results supporting the discharge/admit diagnosis, the need for outpatient follow up, to return to the emergency department if symptoms worsen or persist or if there are any questions or concerns that arise at home. Response to treatment: the patient's symptoms have markedly improved after treatment, and as a result, I will discharge patient. Special discussion: I discussed with the patient/guardian in detail that at this point there is no indication for admission to the hospital. It is understood, however, that if the symptoms persist or worsen the patient needs to return immediately for re-evaluation. 04/29 12:48 Order name: Paracentesis Proc Guidance EDMS Administered Medications: 12:55 CANCELLED (Physician Discretion): Demerol 25 mg IVP once; RASS on ADMIN: Combtv4, Very sv Agttd3, Agttd2, Rstlss1, AlertClm0, Drwsy-1, Lt Sdtn-2, Mod Sdtn-3, Dp Sdtn-4, UnArsble-5 12:55 Drug: Demerol 25 mg {Note: rass1.} Route: IM; Site: left deltoid; sv 14:18 Follow up: Response: No adverse reaction; Pain is decreased; RASS: Alert and Calm (0) sv 14:25 Drug: Albumin 75 grams Volume: 100 ml; Route: IVPB; Site: left hand; sv 16:10 Follow up: Response: No adverse reaction; IV Status: Completed infusion; IV Intake: sv 300ml Disposition: 04/29/20 15:58 Discharged to Home. Impression: Ascites. - Condition is Stable. - Discharge Instructions: Ascites. - Medication Reconciliation Form, Thank You Letter, Antibiotic Education, Prescription Opioid Use form. - Follow up: Private Physician; When: Tomorrow; Reason: Recheck today's complaints, Continuance of care, Re-evaluation by your physician. - Problem is an ongoing problem. - Symptoms have improved. Signatures: Dispatcher [employer] EDCasandra Zaidi RN Dane Frey MD MD rn Lewis, Lynsay, RN RN ll1 Corrections: (The following items were deleted from the chart) 12:55 12:31 IV Saline Lock ordered. rn lila 12:55 12:31 Demerol 25 mg IVP once; RASS on ADMIN: Combtv4, Very Agttd3, Agttd2, Rstlss1, sv AlertClm0, Drwsy-1, Lt Sdtn-2, Mod Sdtn-3, Dp Sdtn-4, UnArsble-5 ordered. rn 13:03 12:32 CBC+H.LAB.BRZ ordered. EDMS EDMS 13:03 12:32 BASIC METABOLIC PANEL+C.LAB.BRZ ordered. EDMS EDMS 13:03 12:32 PROTIME (+INR)+COAG.LAB.BRZ ordered. EDMS EDMS 13:03 12:32 PTT, ACTIVATED+COAG.LAB.BRZ ordered. EDMS EDMS 13:03 12:32 HEPATIC FUNCTION+C.LAB.BRZ ordered. [facility] EDCA 16:19 15:58 04/29/2020 15:58 Discharged to Home. Impression: Ascites. Condition is Stable. sv Discharge Instructions: Ascites. Forms are Medication Reconciliation Form, Thank You Letter, Antibiotic Education, Prescription Opioid Use. Follow up: Private Physician; When: Tomorrow; Reason: Recheck today's complaints, Continuance of care, Re-evaluation by your physician. Problem is an ongoing problem. Symptoms have improved. rn
[2020-04-29 16:37] VITALS: TEMP 97
[2020-04-29 16:39] VITALS: O2SAT 99
[2020-04-29 16:41] VITALS: BP 109/81
--- NOTE | 2020-04-29 21:18 | RAD REPORT ---
EXAM DESCRIPTION: US - Paracentesis Proc Guidance - 04/29/2020 1:49 pm CLINICAL HISTORY: Liver disease with ascites FINDINGS: The risks, benefits and alternatives to the procedure were explained to the patient and in formed consent obtained. The skin and subcutaneous tissues were anesthetized with Lidocaine. Under sonographic guidance an 8 F rench catheter was placed into the right lower quadrant. 6 liters of yellow fluid was removed The patient experienced no immediate complication. IMPRESSION: Paracentesis
== END 2020-04-29 16:19 | disposition home or self-care (01) ==
LOC: ER 11:47
DX: R18.8 Other ascites (principal); F17.210 Nicotine dependence, cigarettes, uncomplicated
CPT/HCPCS: 49083; J2175; P9047; 96365; 96366; 96372; 99284

== ENCOUNTER 2021-02-20 14:34 | Emergency (ER) | payer MEDICARE, OTHER ==
[2021-02-20 16:17] LABS: Absolute Lymphocytes (CBC) 0.7 K/uL (0.7-4.9); Basophils % 0.2 % (0-1.3); Hematocrit 43.1 % (36.0-45.0); Lymphocytes % 10.9 % (15.3-44.8); MPV 8.3 fL (7.6-11.3); RBC Red Blood Cell Count 4.36 M/uL (3.86-4.86)
[2021-02-20 16:20] LABS: Protime INR 1.12
[2021-02-20 16:28] LABS: ALT/SGPT 95 U/L (12-78); AST/SGOT 63 U/L (15-37); Albumin 4.4 g/dL (3.4-5.0); Alkaline Phosphatase 76 U/L (45-117); BUN Blood Urea Nitrogen 10 mg/dL (7-18); Bicarbonate 28 mmol/L (21-32); Bilirubin Direct 0.4 mg/dL (0-0.2); Bilirubin Total 1.8 mg/dL (0.2-1.0); Glucose Level 91 mg/dL (74-106); Magnesium 1.9 mg/dL (1.8-2.4); NT PRO-BNP 267 pg/mL (<125); Potassium 3.4 mmol/L (3.5-5.1); Protein, Total 8.3 g/dL (6.4-8.2); Sodium Level 135 mmol/L (136-145); Troponin (Emerg Dept Use Only) < 0.02 ng/mL (0.0-0.045)
--- NOTE | 2021-02-20 17:01 | RAD REPORT ---
EXAM DESCRIPTION: US - Extremity Venous Uni Ltd - 02/20/2021 4:55 pm CLINICAL HISTORY: Swelling;Pain COMPARISON: February 2020. TECHNIQUE: Real-time sonographic evaluation of the left lower extremity deep venous system was perfo rmed. FINDINGS: Normal compressibility, flow augmentation, phasic flow and spontaneous flow are identified in the left lower extremity common femoral, superficial femoral, popliteal and posterior tibial vein s. No intraluminal filling defects seen. IMPRESSION: No DVT in the left lower extremity.
--- NOTE | 2021-02-20 17:05 | ER ---
Nurse's Notes [facility] Name: Radha Wallace Age: 60 yrs Sex: Female : 1960 Arrival Date: 02/20/2021 Time: 14:36 Bed 12 Private MD: Diagnosis: Cellulitis of left lower limb Presentation: 02/20 15:05 Chief complaint: Patient states: Pt states got tangled up in bed sheets and fell out of 1 bed on 02/18/21, states thinks twisted Left ankle and noticed swelling yesterday 02/19/21; also states hit head. Left ankle appears to be swollen, red and tender to touch. C/o headache and chest pressure/tightness. Denies NVD. Also states flea bits, thinks they are flea bits, and bites are all over body and states that the bites are turning into bruises. Coronavirus screen: Vaccine status: Patient reports receiving the 2nd dose of the covid vaccine. Client denies travel out of the [place] in the last 14 days. Ebola Screen: Patient negative for fever greater than or equal to 101.5 degrees Fahrenheit, and additional compatible Ebola Virus Disease symptoms. Initial Sepsis Screen: Does the patient meet any 2 criteria? HR > 90 bpm. Yes Does the patient have a suspected source of infection? No. Patient's initial sepsis screen is negative. Risk Assessment: Do you want to hurt yourself or someone else? Patient reports no desire to harm self or others. Onset of symptoms was February 18, 2021. 15:05 Method Of Arrival: Wheelchair vg1 15:05 Acuity: ALESSANDRO 3 vg1 Historical: - Allergies: 15:13 No Known Allergies; vg1 - Home Meds: 15:13 Furosemide Oral [Active]; Spironolactone Oral [Active]; vg1 - PMHx: 15:13 COPD; HEP C; Asthma; vg1 - PSHx: 15:13 Cholecystectomy; Liver Biopsy; Bladder; Hysterectomy; vg1 - Immunization history:: Client reports receiving the 2nd dose of the Covid vaccine. - Social history:: Smoking status: Patient reports the use of cigarette tobacco products, smokes one-half pack cigarettes per day. Screenin:14 Abuse screen: Denies threats or abuse. Denies injuries from another. Nutritional jt3 screening: No deficits noted. Tuberculosis screening: No symptoms or risk factors identified. Fall Risk Fall in past 12 months (25 points). Assessment: 16:14 General: Appears in no apparent distress. Behavior is calm, cooperative. Pain: jt3 Complains of pain in left leg whole left leg. Pain currently is 7 out of 10 on a pain scale. Cardiovascular: No deficits noted. Respiratory: No deficits noted. Derm: Reports pain Redness, edema, and pain to left ankle/leg. Left ankle is warm and red to touch. Denies fevers. Alert and oriented x4. Denies SOB. 16:17 Reassessment: Pt. placed on cardiac and SPO2 monitor. jt3 Vital Signs: 15:05 BP 111 / 82; Pulse 111; Resp 16; Temp 97.8; Pulse Ox 99% ; Weight 72.57 kg; Height 5 vg1 ft. 6 in. (167.64 cm); Pain 7/10; 17:34 BP 125 / 83; Pulse 89; Resp 17; Pulse Ox 98% on R/A; jt3 15:05 Body Mass Index 25.82 (72.57 kg, 167.64 cm) vg1 ED Course: 14:36 Patient arrived in ED. as 15:13 Triage completed. vg1 15:13 Arm band placed on. vg1 15:34 Graciel[facility]her [facility]NP-C [facility]. kb 15:34 Spencer Razo MD is Attending Physician. kb 15:40 Juan Badillo RN is Primary Nurse. jt3 16:14 Patient has correct armband on for positive identification. Bed in low position. Call jt3 light in reach. Side rails up X2. 16:14 No provider procedures requiring assistance completed. Inserted saline lock: 22 gauge jt3 in right antecubital area, using aseptic technique. Blood collected. 16:54 US Extremity Venous Unilateral Ltd In Process Unspecified. EDMS 17:00 Ankle Left 3 View XRAY In Process Unspecified. EDMS 17:00 XRAY Chest (1 view) In Process Unspecified. EDMS 17:35 IV discontinued, intact, bleeding controlled, No redness/swelling at site. Pressure jt3 dressing applied. Administered Medications: 17:18 Drug: [place] (HYDROcodone-acetaminophen) (7.5 mg-325 mg) 1 tabs Route: PO; jt3 17:36 Follow up: Response: No adverse reaction jt3 17:18 Drug: Bactrim (trimethoprim-sulfamethoxazole) (160 mg-800 mg (DS) 1 tablet Route: PO; jt3 17:36 Follow up: Response: No adverse reaction jt3 17:18 Drug: KeFLEX (cephalexin) 500 mg Route: PO; jt3 17:36 Follow up: Response: No adverse reaction jt3 Outcome: 17:05 Discharge ordered by MD. kirby 17:35 Discharged to home via wheelchair. jt3 17:35 Condition: improved 17:35 Discharge instructions given to patient, Instructed on discharge instructions, no drinking with medication, Demonstrated understanding of instructions, medications, Prescriptions given X 3. 17:56 Patient left the ED. jt3 Signatures: Dispatcher [employer] EDGraciela Cortes, MADISYN OWEN-Deja Bell Victoria, RN RN vg1 Juan Badillo RN RN jt3
--- NOTE | 2021-02-20 17:06 | EDPHYS ---
Physician Documentation [facility] Name: Radha Wallace Age: 60 yrs Sex: Female : 1960 Arrival Date: 02/20/2021 Time: 14:36 Bed 12 Private MD: GARY Physician Spencer Razo HPI: 02/20 16:56 This 60 yrs old Female presents to ER via Wheelchair with complaints of Feet kb Swelling. 16:56 The patient presents with an injury, pain, swelling, tenderness. The complaints affect kb the dorsum of left foot and anterior aspect of left ankle. Context: The problem was sustained at home, resulted from twisting of the extremity, the patient can fully bear weight, the patient is able to ambulate. Onset: The symptoms/episode began/occurred yesterday. Modifying factors: The symptoms are alleviated by nothing. the symptoms are aggravated by movement. Associated signs and symptoms: Pertinent positives: swelling, warmth, Pertinent negatives calf tenderness, fever, nausea, numbness, rash, tingling, vomiting, weakness. Treatment prior to arrival includes: no previous treatment. Severity of symptoms: At their worst the symptoms were moderate, in the emergency department the symptoms are unchanged. The patient has not experienced similar symptoms in the past. The patient has not recently seen a physician. Pt states she twisted her foot in the bed on night. States it was fine on Monday morning, but became painful and swollen by Monday evening. Also reports flea bites diffusely. States she has had a slight headache. Historical: - Allergies: 15:13 No Known Allergies; vg1 - Home Meds: 15:13 Furosemide Oral [Active]; Spironolactone Oral [Active]; vg1 - PMHx: 15:13 COPD; HEP C; Asthma; vg1 - PSHx: 15:13 Cholecystectomy; Liver Biopsy; Bladder; Hysterectomy; vg1 - Immunization history:: Client reports receiving the 2nd dose of the Covid vaccine. - Social history:: Smoking status: Patient reports the use of cigarette tobacco products, smokes one-half pack cigarettes per day. ROS: 16:54 Constitutional: Negative for fever, chills, and weight loss. kb 16:54 MS/extremity: Positive for erythema, pain, swelling, tenderness, of the dorsum of left foot and anterior aspect of left ankle. 16:54 Skin: Positive for flea bites. 16:54 All other systems are negative. Exam: 16:53 Constitutional: This is a well developed, well nourished patient who is awake, alert, kb and in no acute distress. Head/Face: Normocephalic, atraumatic. ENT: Moist Mucous membranes Cardiovascular: Regular rate and rhythm with a normal S1 and S2. No gallops, murmurs, or rubs. No pulse deficits. Respiratory: Respirations even and unlabored. No increased work of breathing, no retractions or nasal flaring. Abdomen/GI: Soft, non-tender. No distention MS/ Extremity: Pulses equal, no cyanosis. Neurovascular intact. Full, normal range of motion. Neuro: Awake and alert, GCS 15, oriented to person, place, time, and situation. Moves all extremities. Normal gait. Psych: Awake, alert, with orientation to person, place and time. Behavior, mood, and affect are within normal limits. 16:53 ECG was reviewed by the Attending Physician. 16:53 Skin: cellulitis, that is moderate, on the anterior aspect of left ankle and dorsum of left foot. Vital Signs: 15:05 BP 111 / 82; Pulse 111; Resp 16; Temp 97.8; Pulse Ox 99% ; Weight 72.57 kg; Height 5 vg1 ft. 6 in. (167.64 cm); Pain 7/10; 17:34 BP 125 / 83; Pulse 89; Resp 17; Pulse Ox 98% on R/A; jt3 15:05 Body Mass Index 25.82 (72.57 kg, 167.64 cm) vg1 MDM: 15:34 Patient medically screened. kb 16:54 Data reviewed: vital signs, nurses notes. Data interpreted: Pulse oximetry: on room air kb is 99 %. Interpretation: normal. 17:04 Counseling: I had a detailed discussion with the patient and/or guardian regarding: the kb historical points, exam findings, and any diagnostic results supporting the discharge/admit diagnosis, lab results, radiology results, the need for outpatient follow up, a family practitioner, to return to the emergency department if symptoms worsen or persist or if there are any questions or concerns that arise at home. 02/20 15:40 Order name: CBC with Diff kb 02/20 15:40 Order name: Basic Metabolic Panel; Complete Time: 16:32 kb 02/20 15:40 Order name: PT-INR; Complete Time: 16:44 kb 02/20 15:40 Order name: Ptt, Activated; Complete Time: 16:44 kb 02/20 15:40 Order name: Blood Culture Adult (2) kb 02/20 15:41 Order name: LFT's; Complete Time: 16:32 kb 02/20 15:40 Order name: Ankle Left 3 View XRAY; Complete Time: 17:22 kb 02/20 15:41 Order name: Magnesium; Complete Time: 16:32 kb 02/20 15:41 Order name: NT PRO-BNP; Complete Time: 16:32 kb 02/20 15:41 Order name: Troponin (emerg Dept Use Only); Complete Time: 16:32 kb 02/20 15:41 Order name: XRAY Chest (1 view); Complete Time: 17:22 kb 02/20 15:41 Order name: US Extremity Venous Unilateral Ltd; Complete Time: 17:03 kb 02/20 15:40 Order name: IV Start; Complete Time: 16:02 kb 02/20 15:41 Order name: EKG; Complete Time: 15:41 kb 02/20 15:41 Order name: Cardiac monitoring; Complete Time: 16:17 kb 02/20 15:41 Order name: EKG - Nurse/Tech; Complete Time: 16:17 kb 02/20 15:41 Order name: Labs collected and sent; Complete Time: 16:17 kb 02/20 15:41 Order name: O2 Per Protocol; Complete Time: 16:17 kb 02/20 15:41 Order name: O2 Sat Monitoring; Complete Time: 16:17 kb EC:53 Rate is 91 beats/min. Rhythm is regular. QRS [place] is Normal. ME interval is normal at kb 138 msec. QRS interval is normal at 74 msec. QT interval is normal at 376 msec. Administered Medications: 17:18 Drug: [place] (HYDROcodone-acetaminophen) (7.5 mg-325 mg) 1 tabs Route: PO; jt3 17:36 Follow up: Response: No adverse reaction jt3 17:18 Drug: Bactrim (trimethoprim-sulfamethoxazole) (160 mg-800 mg (DS) 1 tablet Route: PO; jt3 17:36 Follow up: Response: No adverse reaction jt3 17:18 Drug: KeFLEX (cephalexin) 500 mg Route: PO; jt3 17:36 Follow up: Response: No adverse reaction jt3 Disposition: 02/21 03:45 Co-signature as Attending Physician, Spencer Razo MD I agree with the assessment and dorinda plan of care. Disposition Summary: 02/20/21 17:05 Discharge Ordered Location: Home kb Condition: Stable kb Diagnosis - Cellulitis of left lower limb kb Followup: kb - With: Emergency Department - When: As needed - Reason: Worsening of condition Followup: kb - With: Private Physician - When: 2 - 3 days - Reason: Recheck today's complaints, Continuance of care, Re-evaluation by your physician Discharge Instructions: - Discharge Summary Sheet kb - Cellulitis, Adult, [id number] kb Forms: - Medication Reconciliation Form kb - Thank You Letter kb - Antibiotic Education kb - Prescription Opioid Use kb Prescriptions: - Cephalexin 500 mg Oral Capsule - take 1 capsule by ORAL route every 8 hours for 10 days; 30 capsule; Refills: 0, kb Product Selection Permitted - Diclofenac Sodium 75 mg Oral tablet,delayed release (DR/EC) - take 1 tablet by ORAL route 2 times per day As needed; 30 tablet; Refills: 0, kb Product Selection Permitted - Bactrim DS 800-160 mg Oral Tablet - take 1 tablet by ORAL route every 12 hours for 10 days; 20 tablet; Refills: 0, kb Product Selection Permitted Signatures: Dispatcher [employer] Graciela Abreu, JIMMYC BRAYDEN-Spencer Aleman MD MD cha Garcia, Victoria, RN RN vg1 Juan Badillo RN RN jt3
[2021-02-20] MEDS ORDERED: HYDROCODONE/APAP 7.5/325 MG TAB ONE (17:12)
[2021-02-20] MEDS ORDERED: SMZ./TMP. 800/160 MG TABLET ONE (17:12)
[2021-02-20] MEDS ORDERED: CEPHALEXIN 250 MG CAP ONE (17:12)
--- NOTE | 2021-02-20 17:15 | RAD REPORT ---
EXAM DESCRIPTION: RAD - Ankle Left 3 View - 02/20/2021 5:00 pm CLINICAL HISTORY: PAIN, twisting. COMPARISON: No comparisons FINDINGS: No fracture, dislocation or periosteal reaction. No joint effusion seen. No joint space na rrowing. Moderate-size spur present the Achilles attachment. Lateral soft tissue swelling is present. IMPRESSION: Soft tissue swelling with no left ankle fracture.
--- NOTE | 2021-02-20 17:15 | RAD REPORT ---
EXAM DESCRIPTION: RAD - Chest Single View - 02/20/2021 5:00 pm CLINICAL HISTORY: CHEST PAIN COMPARISON: February 2020 TECHNIQUE: AP portable chest image was obtained 02/20/2021 5:00 pm . FINDINGS: Lungs are clear. Prominent interstitial pattern matches comparison. Heart and vasculature are normal. No measurable pleural effusion and no pneumothorax. No acute bony abnormality seen. No ac fortino aortic findings suspected. IMPRESSION: No acute cardiopulmonary process. No significant change from comparison study.
[2021-02-20 18:17] VITALS: TEMP 97.8
[2021-02-20 18:18] VITALS: BP 125/83; O2SAT 98
[2021-02-20 19:25] LABS: Blood Morphology Comment NOT SEEN (NOT SEEN); Platelet Estimate DECR; White Blood Cell Scan OK (OK)
--- OUTSIDE RECORDS SUMMARY | 2021-02-21 00:05 | XMS REPORT | Continuity of Care Document ---
:1960 Author Organization [facility] t Address [address] [place] [address] [place] [id number] Care Team Providers Name Role Phone Cesar COMBS Attending Clinician Unavailable Payers Payer Name Policy Type Policy Number Effective Date Expiration Date Kathryn SUMNER/[employer] [id number] 2020 00:00:00 [employer] AD[employer] CHOICE PPO Problems This patient has no known problems. Allergies, Adverse Reactions, Alerts Allergy Allergy Status Severity Reaction(s) Onset Inactive Treating Comm ents Source Name Type Date Date Clinician NO KNOWN Drug Active [facility] Medications This patient has no known medications. Procedures This patient has no known procedures. Encounters Start End Encounter Admission Attending Care Care Encounter Source Date/Time Date/Time Type Type Clinicians Facility Department ID 2020-05-12 2020-05-12 Outpatient R DAMI [facility] [id number] [facility] 12:15:00 12:15:00 JOSE Garcias [facility] Results This patient has no known results.
== END 2021-02-20 17:56 | disposition home or self-care (01) ==
LOC: ER 14:34
DX: L03.116 Cellulitis of left lower limb (principal); J44.9 Chronic obstructive pulmonary disease, unspecified; J45.909 Unspecified asthma, uncomplicated; F17.210 Nicotine dependence, cigarettes, uncomplicated
CPT/HCPCS: 36415; 71045; 80048; 80076; 83735; 83880; 84484; 85025; 85610; 85730; 87040; 93005; 93971; 99284

== ENCOUNTER 2021-10-04 18:32 | Emergency (ER) | payer OTHER ==
--- OUTSIDE RECORDS SUMMARY | 2021-10-04 18:36 | XMS REPORT | Continuity of Care Document ---
:1960 Author Organization [facility] t Address [address] [place] [address] [place] [id number] Care Team Providers Name Role Phone Cesar COMBS Attending Clinician Unavailable Payers Payer Name Policy Type Policy Number Effective Date Expiration Date Kathryn SUMNER/[employer] [id number] 2020 00:00:00 [employer] AD[employer] CHO[employer] PPO Problems This patient has no known problems. Allergies, Adverse Reactions, Alerts Allergy Allergy Status Severity Reaction(s) Onset Inactive Treating Comm ents Source Name Type Date Date Clinician NO KNOWN Drug Active [facility] of [facility] Medications This patient has no known medications. Procedures This patient has no known procedures. Encounters Start End Encounter Admission Attending Care Care Encounter Source Date/Time Date/Time Type Type Clinicians Facility Department ID 2020-05-12 2020-05-12 Outpatient R DAMI [facility] [id number] [facility] 12:15:00 12:15:00 JOSE Garcias [facility] Results This patient has no known results.
[2021-10-04] MEDS ORDERED: ASPIRIN 81 MG CHEWABLE TABLET ONE (19:52)
--- NOTE | 2021-10-04 21:20 | RAD REPORT ---
EXAM DESCRIPTION: RAD - Chest Single View - 10/04/2021 8:43 pm CLINICAL HISTORY: CHEST PAIN COMPARISON: February 2021 TECHNIQUE: AP portable chest image was obtained 10/04/2021 8:43 pm . FINDINGS: Lungs are clear of acute finding. Interstitial pattern matches comparison. . Heart and vas culature are normal. No measurable pleural effusion and no pneumothorax. No acute bony abnormality se en. No acute aortic findings suspected. IMPRESSION: No acute cardiopulmonary process. No significant change from comparison study.
--- NOTE | 2021-10-04 21:38 | ER ---
Nurse's Notes [facility] Name: Radha Wallace Age: 61 yrs Sex: Female : 1960 Arrival Date: 10/04/2021 Time: 18:35 Bed 13 Private MD: Diagnosis: Bitten by dog;Local infection of the skin and subcutaneous tissue, unspecified;Chest pain, unspecified Presentation: 10/04 19:09 Chief complaint: Patient states: my chest hurts and I cant breathe since about mid kd3 afternoon. my left arm also hurts. I have a scratch on my left arm where a puppy scratched me and it hurts and feels hot to the touch. my joints also hurt. Coronavirus screen: Vaccine status: Patient reports receiving the 2nd dose of the covid vaccine. Ebola Screen: No symptoms or risks identified at this time. Initial Sepsis Screen: Does the patient meet any 2 criteria? No. Patient's initial sepsis screen is negative. Does the patient have a suspected source of infection? No. Patient's initial sepsis screen is negative. Risk Assessment: Do you want to hurt yourself or someone else? Patient reports no desire to harm self or others. Onset of symptoms was October 04, 2021. 19:09 Method Of Arrival: Ambulatory kd3 19:09 Acuity: ALESSANDRO 3 kd3 Triage Assessment: 19:12 Headache History: Denies prior headaches. General: Appears in no apparent distress. kd3 Behavior is calm, cooperative. Pain: Pain currently is 8 out of 10 on a pain scale. Pain began gradually, Also complains of nausea. Neuro: No deficits noted. Historical: - Allergies: 20:00 No Known Allergies; ke1 - PMHx: 19:12 Asthma; COPD; HEP C; kd3 - PSHx: 19:12 Bladder; Cholecystectomy; hysterectomy; liver biopsy; kd3 - Immunization history:: Adult Immunizations up to date. - Social history:: Smoking status: Patient reports the use of cigarette tobacco products, smokes one-half pack cigarettes per day. Screenin:00 Abuse screen: Denies threats or abuse. Nutritional screening: No deficits noted. ke1 Tuberculosis screening: No symptoms or risk factors identified. Fall Risk No fall in past 12 months (0 pts). No secondary diagnosis (0 pts). No IV (0 pts). Ambulatory Aid- None/Bed Rest/Nurse Assist (0 pts). Gait- Normal/Bed Rest/Wheelchair (0 pts) Mental Status- Oriented to own ability (0 pts). Total Freeman Fall Scale indicates. Assessment: 20:28 Reassessment: After 2 missed IV insertion attempt,patient does not want anymore needle ke1 stick because she has always difficult stick and the pain is unbearable for her. Offer to call someone else but she refused.CUT OUT AND MARKING MACHINE OPERATOR notified. 21:30 Reassessment: Patient appears in no apparent distress at this time. Patient is alert, ke1 oriented x 3, equal unlabored respirations, skin warm/dry/pink. Patient denies pain at this time. Patient states feeling better. Patient states symptoms have improved. Vital Signs: 19:14 BP 128 / 88; Pulse 18; Resp 92; Temp 98.1; Pulse Ox 100% ; Weight 64.41 kg; Height 5 kd3 ft. 5 in. (165.10 cm); Pain 8/10; 21:51 BP 126 / 82; Pulse 86; Resp 17; Temp 97.8(O); Pulse Ox 100% ; Pain 0/10; ke1 19:14 Body Mass Index 23.63 (64.41 kg, 165.10 cm) kd3 ED Course: 18:35 Patient arrived in ED. rg4 19:12 Triage completed. kd3 19:12 Arm band placed on right wrist. kd3 19:30 Graciela Maher FNP-C [facility]. kb 19:30 Jai Hargrove MD is Attending Physician. kb 19:42 Valerio Morales RN is Primary Nurse. ke1 20:00 Bed in low position. Call light in reach. ke1 20:27 Missed attempt(s): 22 gauge in right antecubital area. ke1 20:27 Missed attempt(s): 22 gauge in right forearm. ke1 20:45 XRAY Chest (1 view) In Process Unspecified. EDMS 21:52 No provider procedures requiring assistance completed. Patient did not have IV access ke1 during this emergency room visit. Administered Medications: 19:51 Drug: Aspirin Chewable Tablet 324 mg Route: PO; ke1 21:50 Drug: KeFLEX (cephalexin) 500 mg Route: PO; ke1 21:50 Follow up: Response: Medication administered at discharge. ke1 21:54 Follow up: Response: Medication administered at discharge. ke1 Medication: 21:53 VIS not applicable for this client. ke1 Outcome: 21:37 Discharge ordered by MD. kirby 21:53 Discharged to home ambulatory. ke1 21:53 Condition: good 21:53 Discharge instructions given to patient. 21:54 Patient left the ED. ke1 Signatures: Dispatcher [employer] EDMS Graciela Maher, METAL POLISHER-C METAL POLISHER-Latonya Orozco rg4 Linda Paul RN RN kd3 Valerio Morales RN RN ke1 Corrections: (The following items were deleted from the chart) 20:27 20:27 Missed attempt(s): 22 gauge in right antecubital area. ke1 ke1
--- NOTE | 2021-10-04 21:38 | EDPHYS ---
Physician Documentation [facility] Name: Radha Wallace Age: 61 yrs Sex: Female : 1960 Arrival Date: 10/04/2021 Time: 18:35 Bed 13 Private MD: ED Physician Jai Hargrove HPI: 10/04 21:27 This 61 yrs old Female presents to ER via Ambulatory with complaints of Arm Pain, kb Headache, Chest Pain, Breathing Difficulty. 21:27 The patient was bitten on the left forearm, by a dog, for an unknown reason, at home. kb Onset: The symptoms/episode began/occurred 1 week(s) ago. Animal information: The animal was reported to appear healthy. Secondary to the bite the patient reports erythema, pain. Associated signs and symptoms: Pertinent positives: erythema at site, tenderness. Severity of symptoms: At their worst the symptoms were mild, moderate, in the emergency department the symptoms are unchanged. The patient has not experienced similar symptoms in the past. The patient has not recently seen a physician. Pt reports she was bit by a dog a week ago and it became red and swollen. states she used a hot compress last night and expressed purulent drainage. Reports pain is radiating up left arm from bite. Also reports chest pain and shortness of breath that started yesterday, worse today. States she also has pain in her joints. Pt has a family history of arthritis, but not sure which kind. Historical: - Allergies: 20:00 No Known Allergies; ke1 - PMHx: 19:12 Asthma; COPD; HEP C; kd3 - PSHx: 19:12 Bladder; Cholecystectomy; hysterectomy; liver biopsy; kd3 - Immunization history:: Adult Immunizations up to date. - Social history:: Smoking status: Patient reports the use of cigarette tobacco products, smokes one-half pack cigarettes per day. ROS: 21:26 Constitutional: Negative for fever, chills, and weight loss. kb 21:26 Cardiovascular: Positive for chest pain, Negative for edema, orthopnea, palpitations, paroxysmal nocturnal dyspnea. 21:26 Respiratory: Positive for shortness of breath, Negative for cough, dyspnea on exertion, hemoptysis, orthopnea, pleurisy, sputum production, wheezing. 21:26 MS/extremity: Positive for joint pain. 21:26 Skin: Positive for abrasion(s), redness and drainage from bite. 21:26 Neuro: Positive for headache. 21:26 All other systems are negative. Exam: 21:26 Constitutional: This is a well developed, well nourished patient who is awake, alert, kb and in no acute distress. Head/Face: Normocephalic, atraumatic. ENT: Moist Mucous membranes Cardiovascular: Regular rate and rhythm with a normal S1 and S2. No gallops, murmurs, or rubs. No pulse deficits. Respiratory: Respirations even and unlabored. No increased work of breathing. Talking in full sentences Abdomen/GI: Soft, non-tender. No distention MS/ Extremity: Pulses equal, no cyanosis. Neurovascular intact. Full, normal range of motion. Neuro: Awake and alert, GCS 15, oriented to person, place, time, and situation. Moves all extremities. Normal gait. Psych: Awake, alert, with orientation to person, place and time. Behavior, mood, and affect are within normal limits. 21:26 Skin: injury, bite(s), superficial, mild surrounding erythema. 21:36 ECG was reviewed by the Attending Physician. Vital Signs: 19:14 BP 128 / 88; Pulse 18; Resp 92; Temp 98.1; Pulse Ox 100% ; Weight 64.41 kg; Height 5 kd3 ft. 5 in. (165.10 cm); Pain 8/10; 21:51 BP 126 / 82; Pulse 86; Resp 17; Temp 97.8(O); Pulse Ox 100% ; Pain 0/10; ke1 19:14 Body Mass Index 23.63 (64.41 kg, 165.10 cm) kd3 MDM: 19:30 Patient medically screened. kb 21:23 Data reviewed: vital signs, nurses notes. Data interpreted: Pulse oximetry: on room air kb is 100 %. Interpretation: normal. Counseling: I had a detailed discussion with the patient and/or guardian regarding: the historical points, exam findings, and any diagnostic results supporting the discharge/admit diagnosis, the need for outpatient follow up, a family practitioner, to return to the emergency department if symptoms worsen or persist or if there are any questions or concerns that arise at home. ED course: After two failed attempts by nurse at an IV, pt refuses labs. Educated that I need to further investigate the cause of her chest pain. Pt states "I don't think it's my heart. The chest pain has eased up, i think I was just panicking about it all." Pt would like antibiotics for the local infection from the dog bite, EKG and chest x-ray only. Pt will return for worsening symptoms or any other concerns. . 10/04 19:37 Order name: Basic Metabolic Panel 10/04 19:37 Order name: CBC with Diff 10/04 19:37 Order name: NT PRO-BNP 10/04 19:37 Order name: Troponin HS 10/04 19:37 Order name: XRAY Chest (1 view); Complete Time: 21:23 kb 10/04 19:37 Order name: EKG; Complete Time: 19:38 kb 10/04 19:37 Order name: Cardiac monitoring; Complete Time: 21:46 kb 10/04 19:37 Order name: EKG - Nurse/Tech; Complete Time: 21:25 kb 10/04 19:37 Order name: O2 Per Protocol; Complete Time: 21:25 kb 10/04 19:37 Order name: O2 Sat Monitoring; Complete Time: 21:25 kb EC:36 Rate is 78 beats/min. Rhythm is regular. QRS [place] is Normal. [place] interval is normal at kb 146 msec. QRS interval is normal at 78 msec. QT interval is normal at 449 msec. Clinical impression: Normal ECG. Administered Medications: 19:51 Drug: Aspirin Chewable Tablet 324 mg Route: PO; ke1 21:50 Drug: KeFLEX (cephalexin) 500 mg Route: PO; ke1 21:50 Follow up: Response: Medication administered at discharge. ke1 21:54 Follow up: Response: Medication administered at discharge. ke1 Disposition Summary: 10/04/21 21:37 Discharge Ordered Location: Home kb Condition: Stable kb Diagnosis - Bitten by dog kb - Local infection of the skin and subcutaneous tissue, unspecified kb - Chest pain, unspecified kb Followup: kb - With: Emergency Department - When: As needed - Reason: Worsening of condition Followup: kb - With: Private Physician - When: 2 - 3 days - Reason: Recheck today's complaints, Continuance of care, Re-evaluation by your physician Discharge Instructions: - Discharge Summary Sheet kb - Animal Bite, Adult, [id number] kb - Nonspecific Chest Pain, Adult, [id number] kb - Wound Infection, [id number] kb Forms: - Medication Reconciliation Form kb - Thank You Letter kb - Antibiotic Education kb - Prescription Opioid Use kb Prescriptions: - Cephalexin 500 mg Oral Capsule - take 1 capsule by ORAL route every 8 hours for 10 days; 30 capsule; Refills: 0, kb Product Selection Permitted Signatures: Dispatcher [employer] Graciela Abreu FNP-C FNP-Ckb Doucette, Kyli, RN RN kd3 Valerio Morales RN RN ke1
[2021-10-04] MEDS ORDERED: CEPHALEXIN 250 MG CAP ONE (21:54)
[2021-10-04 22:59] VITALS: O2SAT 100
[2021-10-04 23:00] VITALS: BP 126/82; TEMP 97.8
--- NOTE | 2021-10-05 08:53 | EKG ---
Test Date: 2021-10-04 Test Time: 21:14:57 Student Success Coach: KEVIN MEASUREMENT RESULTS: Intervals: Rate: 78 IA: 146 QRSD: 78 QT: 394 QTc: 449 [place]: P: 64 IA: 146 QRS: -14 T: 37 INTERPRETIVE STATEMENTS: Normal sinus rhythm Normal ECG Compared to ECG 02/20/2021 16:17:41 Myocardial infarct finding no longer present Electronically Signed On 10-05-21 08:52:04 CDT by Sravan Davis
== END 2021-10-04 21:54 | disposition home or self-care (01) ==
LOC: ER 18:32
DX: L08.9 Local infection of the skin and subcutaneous tissue, unspecified (principal); R07.9 Chest pain, unspecified; W54.0XXA Bitten by dog, initial encounter; F17.210 Nicotine dependence, cigarettes, uncomplicated; J44.9 Chronic obstructive pulmonary disease, unspecified
CPT/HCPCS: 71045; 93005

== ENCOUNTER 2021-11-24 20:25 | Emergency (ER) | payer OTHER ==
--- OUTSIDE RECORDS SUMMARY | 2021-11-24 20:29 | XMS REPORT | Continuity of Care Document ---
:1960 Author Organization [facility] t Address [address] [place] [address] [place] [id number] Care Team Providers Name Role Phone JOSE COMBS Attending Clinician Unavailable Payers Payer Name Policy Type Policy Number Effective Date Expiration Date Kathryn magdaleno [employer] [id number] 2020 00:00:00 [employer] ADV CHOICE PPO Problems This patient has no known problems. Allergies, Adverse Reactions, Alerts Allergy Allergy Status Severity Reaction(s) Onset Inactive Treating Comm ents Source Name Type Date Date Clinician NO KNOWN Drug Active [facility] Medications This patient has no known medications. Procedures This patient has no known procedures. Encounters Start End Encounter Admission Attending Care Care Encounter Source Date/Time Date/Time Type Type Clinicians Facility Department ID 2020-05-12 2020-05-12 Outpatient Dennis LOMAX [facility] [id number] [facility] 12:15:00 12:15:00 JOSE Garcias f [facility] Results This patient has no known results.
[2021-11-24] MEDS ORDERED: NA CHLORIDE 0.9% 1,000 ML ONE (21:28)
--- NOTE | 2021-11-24 21:39 | RAD REPORT ---
EXAM DESCRIPTION: RAD - Chest Single View - 11/24/2021 8:55 pm CLINICAL HISTORY: AMS COMPARISON: 10/04/2021 TECHNIQUE: AP portable chest image was obtained 11/24/2021 8:55 pm . FINDINGS: No acute lung parenchymal process. Interstitial pattern matches comparison. Heart and vasc ulature are normal. No measurable pleural effusion and no pneumothorax. No acute bony abnormality see n. No acute aortic findings suspected. IMPRESSION: No acute cardiopulmonary process.
--- NOTE | 2021-11-24 21:46 | RAD REPORT ---
EXAM DESCRIPTION: CT - Head Brain Wo Cont - 11/24/2021 9:36 pm CLINICAL HISTORY: AMS COMPARISON: No comparisons TECHNIQUE: Axial 5 mm thick images of the head were obtained without IV contrast. All CT scans are performed using dose optimization technique as appropriate and may include automated exposure control or mA/KV adjustment according to patient size. FINDINGS: No intracranial hemorrhage, mass, edema or shift of mid-line structures. No acute infarcti on changes seen. No abnormal extra-axial fluid collections. Ventricles are normal. Mastoid air cells and visualized portions of the paranasal sinuses are clear. No acute bony findings. IMPRESSION: Negative non-contrast CT head examination.
[2021-11-24 22:08] LABS: Absolute Lymphocytes (CBC) 0.8 K/uL (0.7-4.9); Hematocrit 37.6 % (36.0-45.0); Lymphocytes % 20.8 % (15.3-44.8); MCV 96.5 fL (80-100)
[2021-11-24 22:27] LABS: Urine Blood Trace-intact (Negative); Urine Glucose Negative (Negative); Urine Protein Negative (Negative); Urine Specific Gravity >=1.030 (1.005-1.030)
[2021-11-24 22:30] LABS: Albumin 3.9 g/dL (3.4-5.0); Bilirubin Direct 0.2 mg/dL (0-0.2); Protein, Total 7.1 g/dL (6.4-8.2)
[2021-11-24 22:32] LABS: Potassium 4.1 mmol/L (3.5-5.1)
[2021-11-25] MEDS ORDERED: CEFTRIAXONE 1000 MG/VIAL ONE
[2021-11-25 00:07] LABS: Urine Bacteria Loaded /HPF (<20); Urine RBC <5 /HPF (None Seen)
--- NOTE | 2021-11-25 00:40 | EDPHYS ---
Physician Documentation [facility] Name: Radha Wallace Age: 61 yrs Sex: Female : 1960 Arrival Date: 11/24/2021 Time: 20:31 Bed 18 Private MD: ED Physician Dane Suazo HPI: 11/24 22:11 This 61 yrs old Female presents to ER via EMS with complaints of Altered Mental Status. rn 22:11 The patient presents with decreased mental status, decreased responsiveness. Onset: The rn symptoms/episode began/occurred at an unknown time. Possible causes: unknown. Current symptoms: In the emergency department the patient's symptoms are unchanged from the initial presentation. The patient has experienced a previous episode. The patient has been recently seen at the [facility] Emergency [facility]. EMS reports family called for AMS, unknown onset, told "today", but not specific with time. Pt somnolent but arousable to voice and painful stimuli. Pt denies drug overdose. . Historical: - PMHx: 20:51 Asthma; COPD; Depression; HEP C; Hepatitis; Hypertension; Hypertensive disorder; Ulcers;lg3 - PSHx: 20:51 Bladder; Cholecystectomy; hysterectomy; liver biopsy; lg3 - Immunization history:: Adult Immunizations unknown, unable to obtain. - Family history:: not pertinent. - Hospitalizations: : No recent hospitalization is reported. ROS: 22:14 Constitutional: Negative for fever, chills, and weight loss, Eyes: Negative for injury, rn pain, redness, and discharge, Neck: Negative for injury, pain, and swelling, Cardiovascular: Negative for chest pain, palpitations, and edema, Respiratory: Negative for shortness of breath, cough, wheezing, and pleuritic chest pain, Abdomen/GI: Negative for abdominal pain, nausea, vomiting, diarrhea, and constipation, Back: Negative for injury and pain, MS/Extremity: Negative for injury and deformity, Skin: Negative for injury, rash, and discoloration, Neuro: Negative for headache, weakness, numbness, tingling, and seizure. Exam: 22:14 Constitutional: Somnolent, arousable to voice and painful stimulation. Head/Face: rn Normocephalic, atraumatic. Eyes: Pupils equal round and reactive to light, extra-ocular motions intact. ENT: dry MM Neck: Trachea midline, no thyromegaly or masses palpated, and no cervical lymphadenopathy. Supple, full range of motion without nuchal rigidity, or vertebral point tenderness. No Meningismus. Cardiovascular: Regular rate and rhythm. No pulse deficits. Respiratory: No increased work of breathing, no retractions or nasal flaring. Abdomen/GI: Soft, non-tender Skin: Warm, dry MS/ Extremity: Pulses equal, no cyanosis. Neuro: Somnolent, arousable, oriented to person and place, not time. Moves all 4 extremities with equal strength. Sensation grossly intact. Vital Signs: 20:42 BP 110 / 52; Pulse 65; Resp 16 S; Temp 97.7(O); Pulse Ox 99% on R/A; Weight 72.57 kg lg3 (R); Height 5 ft. 6 in. (167.64 cm) (R); Pain 0/10; 22:23 BP 116 / 44; Pulse 71; Resp 16; Pulse Ox 99% on R/A; lg3 23:30 BP 114 / 63; Pulse 66; Resp 16 S; Pulse Ox 99% on R/A; ha1 18 00:20 BP 129 / 77; Pulse 83; Resp 17 S; Pulse Ox 100% on R/A; ha1 01:21 BP 130 / 86; Pulse 84; Resp 16; Pulse Ox 99% on R/A; lg3 11/24 20:42 Body Mass Index 25.82 (72.57 kg, 167.64 cm) lg3 Abe Coma Score: 01:21 Eye Response: spontaneous(4). Verbal Response: oriented(5). Motor Response: obeys lg3 commands(6). Total: 15. MDM: 11/24 20:33 Patient medically screened. rn 11/25 00:37 Differential Diagnosis: CVA, electrolyte abnormality, alcohol intoxication, rn hypoglycemia, intracranial bleed, overdose, pneumonia, sepsis, TIA, UTI, volume depletion. Data reviewed: vital signs, nurses notes, lab test result(s), EKG, radiologic studies, CT scan, plain films, and as a result, I will admit patient. Counseling: I had a detailed discussion with the patient and/or guardian regarding: the historical points, exam findings, and any diagnostic results supporting the discharge/admit diagnosis, lab results, radiology results, the need for further work-up and treatment in the hospital. Response to treatment: the patient's symptoms have mildly improved after treatment, and as a result, I will admit patient. Admission orders: after a detailed discussion of the patient's condition and case, the admit orders are written by me. ED course: Pt more alert, awake, tearful, doesn't recall being at [facility], has UTI, urine drug screen still pending, not back to baseline, will admit to hospitalist service.. 00:54 ED course: Pt now much more alert, oriented x 3, understands me wanting to admit her. rn Doesn't recall being in [facility] or how she got here. Told her would like to admit her for AMS and UTI and she does not want to be admitted. Understands risks of not being admitted. States has dog at home and can't be admitted/leave dog alone. . 01:07 ED course: Pt positive for benzos and opiates. Pt denies taking pills or drugs.. rn 11/24 20:34 Order name: AMMONIA; Complete Time: 01:07 rn 11/24 20:34 Order name: CBC with Diff; Complete Time: 23:12 rn 11/24 20:34 Order name: Basic Metabolic Panel; Complete Time: 23:12 rn 11/24 20:34 Order name: Urine Culture rn 11/24 20:34 Order name: Urine Drug Screen; Complete Time: 01:07 rn 11/24 20:34 Order name: Urine Microscopic Only; Complete Time: 00:20 rn 11/24 20:34 Order name: CT Head Brain wo Cont; Complete Time: 21:48 rn 11/24 20:34 Order name: LFT's; Complete Time: 23:12 rn 11/24 20:34 Order name: Lipase; Complete Time: 23:12 rn 11/24 20:34 Order name: XRAY Chest (1 view); Complete Time: 21:48 rn 11/24 20:36 Order name: SARS-COV-2 RT PCR (Document "Date of Onset" if Symptomatic); Complete Time: rn 23:12 11/24 22:16 Order name: ETOH Level mw2 11/24 22:27 Order name: Urine Dipstick-Ancillary; Complete Time: 23:12 EDMS 11/24 20:34 Order name: IV Start; Complete Time: 21:42 rn 11/24 20:34 Order name: Urine Dipstick-Ancillary (obtain specimen); Complete Time: 22:19 rn Administered Medications: 11/24 21:49 Drug: NS 0.9% 1000 ml Route: IV; Rate: 1000 ml; Site: left antecubital; lg3 11/25 01:19 Follow up: Response: No adverse reaction; IV Status: Completed infusion; IV Intake: lg3 1000ml 00:20 Drug: Rocephin (cefTRIAXone) 1 grams Route: IV; Rate: calculated rate; Site: left ha1 forearm; 00:59 Follow up: Response: No adverse reaction ha1 01:19 Follow up: Response: No adverse reaction; IV Status: Completed infusion; IV Intake: [id number] Disposition Summary: 11/25/21 01:06 Discharge Ordered Location: Home(11/25/21 01:06) rn Problem: new(11/25/21 01:06) rn Symptoms: have improved(11/25/21 01:06) rn Condition: Stable(11/25/21 01:06) rn Diagnosis - UTI/ Urinary tract infection, site not specified(11/25/21 01:06) rn - Altered mental status, unspecified(11/25/21 01:06) rn Followup: rn - With: Private Physician - When: As needed - Reason: Recheck today's complaints, Re-evaluation by your physician Discharge Instructions: - Discharge Summary Sheet rn - Urinary Tract Infection, Adult rn Forms: - Medication Reconciliation Form rn - Thank You Letter rn - Antibiotic precision grinder external - Prescription Opioid Use rn Prescriptions: - cefpodoxime 100 mg Oral Tablet - take 2 tablets by ORAL route every 12 hours for 10 days take with food; 40 rn tablet; Refills: 0, Product Selection Permitted Signatures: Dispatcher [employer] Dane Smith MD MD rn Attema, Lee, BRAYDEN-C RENDERING EQUIPMENT TENDER-Cla1 Rosy Rodriguez RN RN lg3 Laura Prater, RN RN ha1 Corrections: (The following items were deleted from the chart) 01: 00:39 Observation rn rn : 00:39 Devyn Chavez rn rn : 00:39 Telemetry/MedSurg (observation) rn rn : 00:39 Stable rn rn : 00:39 new rn rn : 00:39 have improved rn rn 00:39 Standard rn rn 00:39 rn rn : 00:39 Altered mental status, unspecified rn rn 00:39 UTI/ Urinary tract infection, site not specified rn rn
--- NOTE | 2021-11-25 00:40 | ER ---
Nurse's Notes [facility] Name: Radha Wallace Age: 61 yrs Sex: Female : 1960 Arrival Date: 11/24/2021 Time: 20:31 Bed 18 Private MD: Diagnosis: UTI/ Urinary tract infection, site not specified;Altered mental status, unspecified Presentation: 11/24 20:42 Chief complaint: EMS states: found at local [facility] by family. pt lethargic and not lg3 responding. arrousable with painful stimuli. oriented to self. hx of hep C. Coronavirus screen: Client denies travel out of the [place] in the last 14 days. At this time, the client does not indicate any symptoms associated with coronavirus-19. Ebola Screen: No symptoms or risks identified at this time. Initial Sepsis Screen: Does the patient meet any 2 criteria? Altered Mental Status. No. Patient's initial sepsis screen is negative. Does the patient have a suspected source of infection? No. Patient's initial sepsis screen is negative. Risk Assessment: Do you want to hurt yourself or someone else? Patient reports no desire to harm self or others. Onset of symptoms is unknown. 20:42 Method Of Arrival: EMS: [facility] lg3 20:42 Acuity: ALESSANDRO 3 lg3 Triage Assessment: 20:51 General: Appears in no apparent distress. Behavior is flat, quiet. Pain: Denies pain. lg3 EENT: No deficits noted. Neuro: [place]ton Agitation-Sedation Scale (RASS): -4 Deep sedation Level of Consciousness is lethargic, obtunded, Speech is slurred, Facial symmetry appears normal. Cardiovascular: No deficits noted. Capillary refill < 3 seconds Clubbing of nail beds is absent JVD is absent Patient's skin is warm and dry. Respiratory: Airway is patent Trachea midline Respiratory effort is even, unlabored, Respiratory pattern is regular, symmetrical, Breath sounds are clear bilaterally. GI: No deficits noted. Abdomen is flat, non-distended, Bowel sounds present X 4 quads. : No deficits noted. Derm: No deficits noted. Skin is intact, is healthy with good turgor, Skin is dry, Skin temperature is warm. Musculoskeletal: Circulation, motion, and sensation intact. Range of motion: intact in all extremities. Historical: - PMHx: 20:51 Asthma; COPD; Depression; HEP C; Hepatitis; Hypertension; Hypertensive disorder; Ulcers;lg3 - PSHx: 20:51 Bladder; Cholecystectomy; hysterectomy; liver biopsy; lg3 - Immunization history:: Adult Immunizations unknown, unable to obtain. - Family history:: not pertinent. - Hospitalizations: : No recent hospitalization is reported. Screenin:53 Abuse screen: Denies threats or abuse. Denies injuries from another. Nutritional lg3 screening: No deficits noted. Tuberculosis screening: No symptoms or risk factors identified. Fall Risk Fall in past 12 months (25 points). Secondary diagnosis (15 points) impaired mobility, IV access (20 points). Gait- Impaired (20 pts.). Mental Status- Overestimates/Forgets Limitations (15 pts.). Total Freeman Fall Scale indicates High Risk Score (45 or more points). Side Rails Up X 2 Frequent Obs/Assessments Occuring. Assessment: 20:53 General: see triage assessment . lg3 22:23 Reassessment: Patient appears in no apparent distress at this time. No changes from lg3 previously documented assessment. Patient and/or family updated on plan of care and expected duration. Pain level reassessed. Patient is alert, oriented x 3, equal unlabored respirations, skin warm/dry/pink. 11/25 00:25 Reassessment: Patient and/or family updated on plan of care and expected duration. Pain ha1 level reassessed. pt. awake requesting to talk to family member. 01:19 Reassessment: pt requesting discharge against medical advice. provider notified. Pain: lg3 Denies pain. Neuro: [place] Agitation-Sedation Scale (RASS): +1 Restless Level of Consciousness is awake, alert, obeys commands, Oriented to person, place, time, Speech is normal, Facial symmetry appears normal. Cardiovascular: No deficits noted. Denies chest pain, shortness of breath. Respiratory: No deficits noted. Airway is patent Trachea midline Respiratory effort is even, unlabored, Respiratory pattern is regular, symmetrical. Musculoskeletal: No deficits noted. Circulation, motion, and sensation intact. Range of motion: intact in all extremities. Vital Signs: 11/24 20:42 BP 110 / 52; Pulse 65; Resp 16 S; Temp 97.7(O); Pulse Ox 99% on R/A; Weight 72.57 kg lg3 (R); Height 5 ft. 6 in. (167.64 cm) (R); Pain 0/10; 22:23 BP 116 / 44; Pulse 71; Resp 16; Pulse Ox 99% on R/A; lg3 23:30 BP 114 / 63; Pulse 66; Resp 16 S; Pulse Ox 99% on R/A; ha1 11/25 00:20 BP 129 / 77; Pulse 83; Resp 17 S; Pulse Ox 100% on R/A; ha1 01:21 BP 130 / 86; Pulse 84; Resp 16; Pulse Ox 99% on R/A; lg3 11/24 20:42 Body Mass Index 25.82 (72.57 kg, 167.64 cm) lg3 Abe Coma Score: 01:21 Eye Response: spontaneous(4). Verbal Response: oriented(5). Motor Response: obeys lg3 commands(6). Total: 15. ED Course: 11/24 20:31 Patient arrived in ED. jj6 20:33 Dane Suazo MD is Attending Physician. rn 20:41 Rosy Rodriguez RN is Primary Nurse. lg3 20:51 Triage completed. lg3 20:51 Arm band placed on right wrist. lg3 20:53 Patient has correct armband on for positive identification. Placed in gown. Bed in low lg3 position. Call light in reach. Side rails up X2. Client placed on continuous cardiac and pulse oximetry monitoring. NIBP monitoring applied. monitor tech on. Door closed. Noise minimized. 20:53 Maintain EMS IV. Dressing intact. Good blood return noted. Site clean \\T\\ dry. Gauge \\T\\ lg 3 site: 20L AC. 20:56 XRAY Chest (1 view) In Process Unspecified. EDMS 21:38 CT Head Brain wo Cont In Process Unspecified. EDMS 21:49 SARS-COV-2 RT PCR (Document "Date of Onset" if Symptomatic) Sent. lg3 21:49 LFT's Sent. lg3 21:49 Lipase Sent. lg3 21:49 Basic Metabolic Panel Sent. lg3 21:49 CBC with Diff Sent. lg3 21:49 AMMONIA Sent. lg3 22:17 Straight cath inserted, using sterile technique, 14 Fr. Specimen obtained. Returned lg3 chao urine. Patient tolerated well. 22:21 Urine Culture Sent. lg3 22:21 Urine Drug Screen Sent. lg3 22:21 Urine Microscopic Only Sent. lg3 11/25 00:39 Devyn Chavez MD is Hospitalizing Provider. rn 01:21 No provider procedures requiring assistance completed. IV discontinued, intact, lg3 bleeding controlled, No redness/swelling at site. Pressure dressing applied. Administered Medications: 11/24 21:49 Drug: NS 0.9% 1000 ml Route: IV; Rate: 1000 ml; Site: left antecubital; lg3 11/25 01:19 Follow up: Response: No adverse reaction; IV Status: Completed infusion; IV Intake: lg3 1000ml 00:20 Drug: Rocephin (cefTRIAXone) 1 grams Route: IV; Rate: calculated rate; Site: left ha1 forearm; 00:59 Follow up: Response: No adverse reaction ha1 01:19 Follow up: Response: No adverse reaction; IV Status: Completed infusion; IV Intake: 04ektd3 Medication: 01:21 VIS not applicable for this client. lg3 Intake: 01:19 IV: 10ml; Total: 10ml. lg3 01:19 IV: 1000ml; Total: 1010ml. lg3 Outcome: 00:39 Decision to Hospitalize by Provider. rn 01:06 Discharge ordered by . rn 01:21 Discharged to home via wheelchair. lg3 01:21 Condition: stable 01:21 Discharge instructions given to patient, Instructed on discharge instructions, medication usage, Demonstrated understanding of instructions, medications, Prescriptions given X 1. 01:23 Patient left the ED. lg3 Signatures: Dispatcher [employer] EDMS Dane Suazo MD MD rn Gibson, Lacie, RN RN lg3 Harriett Horne jj6 Laura Prater RN RN ha1
[2021-11-25 00:55] LABS: Benzodiazepines POSITIVE (NEGATIVE); Cocaine NEGATIVE (NEGATIVE); Phencyclidine NEGATIVE (NEGATIVE)
[2021-11-25 00:56] LABS: Barbiturates NEGATIVE (NEGATIVE); METHAMPHETAM ND (NEGATIVE); Methadone NEGATIVE (NEGATIVE); Opiates POSITIVE (NEGATIVE); THC Cannibis NEGATIVE (NEGATIVE)
[2021-11-25 04:16] VITALS: TEMP 97.7
[2021-11-25 04:25] VITALS: BP 130/86; O2SAT 99
== END 2021-11-25 01:23 | disposition home or self-care (01) ==
LOC: ER 20:25
DX: R41.82 Altered mental status, unspecified (principal); N39.0 Urinary tract infection, site not specified; I10 Essential (primary) hypertension; J44.9 Chronic obstructive pulmonary disease, unspecified; Z20.822 Contact with and (suspected) exposure to COVID-19
CPT/HCPCS: 96365; 96361; 87088; 85025; 87086; 80048; 36415; 80320; 82140; 80076; 83690; 80307; 70450; 71045; 51702; 99284; U0003; J7030; 81003; 81015

== ENCOUNTER 2022-03-31 11:26 | Emergency (ER) | payer OTHER ==
--- OUTSIDE RECORDS SUMMARY | 2022-03-31 11:29 | XMS REPORT | Continuity of Care Document ---
:1960 Author Organization [facility] t Address [address] [place] [address] Care Team Providers Name Role Phone JOSE COMBS Attending Clinician Unavailable Payers Payer Name Policy Type Policy Number Effective Date Expiration Date Kathryn maribelmayito TAISHA/MEDINA [id number] 2020 00:00:00 [employer] AD[employer] CHOICE PPO Problems This patient has no known problems. Allergies, Adverse Reactions, Alerts Allergy Allergy Status Severity Reaction(s) Onset Inactive Treating Comm ents Source Name Type Date Date Clinician NO KNOWN Drug Active [facility] Medications This patient has no known medications. Procedures This patient has no known procedures. Encounters Start End Encounter Admission Attending Care Care Encounter Source Date/Time Date/Time Type Type Clinicians Facility Department ID 2020-05-12 2020-05-12 Outpatient R [facility] [id number] [facility] 12:15:00 12:15:00 JOSE Garcias o [facility] Results This patient has no known results.
--- NOTE | 2022-03-31 11:42 | ER ---
Nurse's Notes [facility] Name: Radha Wallace Age: 61 yrs Sex: Female : 1960 Arrival Date: 03/31/2022 Time: 11:29 Bed 17 Private MD: Diagnosis: Cellulitis of right lower limb Presentation: 03/31 11:41 Chief complaint: Patient states: Stepped on a screw to R foot on Monday. Started to get ll1 red, painful, and swollen since. No fever. Coronavirus screen: Vaccine status: Patient reports receiving the 2nd dose of the covid vaccine. Client denies travel out of the [place] in the last 14 days. At this time, the client does not indicate any symptoms associated with coronavirus-19. Ebola Screen: Patient denies travel to an Ebola-affected area in the 21 days before illness onset. Initial Sepsis Screen: Does the patient meet any 2 criteria? No. Patient's initial sepsis screen is negative. Does the patient have a suspected source of infection? Yes: Skin breakdown/wound. Risk Assessment: Do you want to hurt yourself or someone else? Patient reports no desire to harm self or others. Onset of symptoms was March 28, 2022. 11:41 Method Of Arrival: Ambulatory ll1 11:41 Acuity: ALESSANDRO 4 ll1 Triage Assessment: 11:40 General: Appears uncomfortable, Behavior is calm, cooperative, appropriate for age. ll1 Pain: Complains of pain in right foot Pain currently is 6 out of 10 on a pain scale. Quality of pain is described as aching, throbbing, Pain began 2-3 days ago. Derm: puncture wound plantar surface of R foot. Wound clean and dry. Redness noted to top of foot. Musculoskeletal: Circulation, motion, and sensation intact. Capillary refill < 3 seconds, Swelling present in right foot. Injury Description: Puncture. Historical: - Allergies: 11:39 No Known Allergies; ll1 - PMHx: 11:39 COPD; Depression; HEP C; Hepatitis; Hypertension; Hypertensive disorder; Asthma; Ulcers;ll1 - PSHx: 11:39 Bladder; Cholecystectomy; hysterectomy; liver biopsy; ll1 - Immunization history:: Client reports receiving the 2nd dose of the Covid vaccine. - Social history:: Smoking status: Patient reports the use of cigarette tobacco products, smokes one-half pack cigarettes per day. Screenin:[address] [facility] ED Fall Risk Assessment (Adult) Impaired Gait Yes (1 pt) Mobility Assist ll1 Device Used No (0 pt) Score/Fall Risk Level 0 - 2 = Low Risk Oriented to surroundings, Maintained a safe environment, Educated pt \T\ family on fall prevention, incl call for assistance when getting out of bed, Hourly rounding (assess needs \T\ fall precautionary measures) done. Abuse screen: Denies threats or abuse. Nutritional screening: No deficits noted. Tuberculosis screening: No symptoms or risk factors identified. Assessment: 11:58 Reassessment: No changes from previously documented assessment. Patient and/or family ll1 updated on plan of care and expected duration. Pain level reassessed. Patient is alert, oriented x 3, equal unlabored respirations, skin warm/dry/pink. Vital Signs: 11:41 BP 135 / 99; Pulse 88; Resp 18; Temp 98.5; Pulse Ox 100% on R/A; Weight 72.57 kg; ll1 Height 5 ft. 5 in. (165.10 cm); Pain 6/10; 11:58 BP 148 / 106; Pulse 100; Resp 18; Pulse Ox 100% on R/A; ll1 11:41 Body Mass Index 26.63 (72.57 kg, 165.10 cm) ll1 ED Course: 11:29 Patient arrived in ED. rg4 11:32 Inge Bernabe, BAKARI is Primary Nurse. ll1 11:32 Arm band placed on Patient placed in an exam room, on a stretcher. ll1 11:34 Graciela Maher [facility]-C [facility]. kb 11:34 Cm Hardy MD is Attending Physician. kb 11:40 Patient has correct armband on for positive identification. Bed in low position. Call ll1 light in reach. Cardiac monitoring not applicable on this patient. 11:42 Triage completed. ll1 11:58 No provider procedures requiring assistance completed. Patient did not have IV access ll1 during this emergency room visit. Administered Medications: 11:50 Drug: Doxycycline 100 mg Route: PO; ll1 11:58 Follow up: Response: No adverse reaction ll1 11:50 Drug: KeFLEX (cephalexin) 500 mg Route: PO; ll1 11:58 Follow up: Response: No adverse reaction ll1 11:50 Drug: [place] (HYDROcodone-acetaminophen) (7.5 mg-325 mg) 1 tabs {Note: rass0, pain ll1 09/17.} Route: PO; 11:58 Follow up: Response: No adverse reaction; Pain is unchanged, physician notified; RASS: ll1 Alert and Calm (0) Medication: 11:50 VIS not applicable for this client. ll1 Outcome: 11:41 Discharge ordered by MD. kirby 11:58 Patient left the ED. ll1 11:58 Discharged to home ambulatory. ll1 11:58 Condition: stable 11:58 Discharge instructions given to patient, Instructed on discharge instructions, follow up and referral plans. medication usage, Demonstrated understanding of instructions, follow-up care, medications, Prescriptions given X 3. Signatures: Graciela Maher FNP-Cesar OWEN-Latonya Orozco rg4 Inge Bernabe, RN RN ll1
--- NOTE | 2022-03-31 11:42 | EDPHYS ---
Physician Documentation [facility] Name: Radha Wallace Age: 61 yrs Sex: Female : 1960 Arrival Date: 03/31/2022 Time: 11:29 Bed 17 Private MD: ED Physician Cm Hardy HPI: 03/31 12:17 This 61 yrs old Female presents to ER via Ambulatory with complaints of Foot Injury. kb 12:17 The patient presents with cellulitis of the right foot. Description: erythematous, kb swollen, warm. Onset: The symptoms/episode began/occurred 2 day(s) ago. Possible cause(s): puncture. Associated signs and symptoms: Pertinent positives: erythema, swelling, Pertinent negatives: discharge, drainage, foreign body sensation, fever, headache, nausea, shortness of breath, vomiting. Modifying factors: the symptoms are alleviated by nothing, the symptoms are aggravated by walking, pressure, touching. Severity of symptoms: At their worst the symptoms were moderate, in the emergency department the symptoms are unchanged. The patient has not experienced similar symptoms in the past. The patient has not recently seen a physician. Pt reports she stepped on a screw on Monday and has developed redness and swelling to right foot since then. Pt states "I just need to get some antibiotics and be on my way.". Historical: - Allergies: 11:39 No Known Allergies; ll1 - PMHx: 11:39 COPD; Depression; HEP C; Hepatitis; Hypertension; Hypertensive disorder; Asthma; Ulcers;ll1 - PSHx: 11:39 Bladder; Cholecystectomy; hysterectomy; liver biopsy; ll1 - Immunization history:: Client reports receiving the 2nd dose of the Covid vaccine. - Social history:: Smoking status: Patient reports the use of cigarette tobacco products, smokes one-half pack cigarettes per day. ROS: 12:17 Constitutional: Negative for fever, chills, and weight loss. kb 12:17 Skin: Positive for cellulitis, erythema, puncture, swelling, of the right foot. 12:17 All other systems are negative. Exam: 12:19 Constitutional: This is a well developed, well nourished patient who is awake, alert, kb and in no acute distress. Head/Face: Normocephalic, atraumatic. ENT: Moist Mucous membranes Cardiovascular: Regular rate and rhythm with a normal S1 and S2. No gallops, murmurs, or rubs. No pulse deficits. Respiratory: Respirations even and unlabored. No increased work of breathing. Talking in full sentences Abdomen/GI: Soft, non-tender. No distention MS/ Extremity: Pulses equal, no cyanosis. Neurovascular intact. Full, normal range of motion. Neuro: Awake and alert, GCS 15, oriented to person, place, time, and situation. Moves all extremities. Normal gait. Psych: Awake, alert, with orientation to person, place and time. Behavior, mood, and affect are within normal limits. 12:19 Skin: cellulitis, that is moderate, on the right foot. Vital Signs: 11:41 BP 135 / 99; Pulse 88; Resp 18; Temp 98.5; Pulse Ox 100% on R/A; Weight 72.57 kg; ll1 Height 5 ft. 5 in. (165.10 cm); Pain 6/10; 11:58 BP 148 / 106; Pulse 100; Resp 18; Pulse Ox 100% on R/A; ll1 11:41 Body Mass Index 26.63 (72.57 kg, 165.10 cm) ll1 MDM: 11:34 Patient medically screened. kb 12:15 Data reviewed: vital signs, nurses notes. Data interpreted: Pulse oximetry: on room air kb is 100 %. Interpretation: normal. 12:19 Counseling: I had a detailed discussion with the patient and/or guardian regarding: the kb historical points, exam findings, and any diagnostic results supporting the discharge/admit diagnosis, the need for outpatient follow up, a family practitioner, to return to the emergency department if symptoms worsen or persist or if there are any questions or concerns that arise at home. Administered Medications: 11:50 Drug: Doxycycline 100 mg Route: PO; ll1 11:58 Follow up: Response: No adverse reaction ll1 11:50 Drug: KeFLEX (cephalexin) 500 mg Route: PO; ll1 11:58 Follow up: Response: No adverse reaction ll1 11:50 Drug: [place] (HYDROcodone-acetaminophen) (7.5 mg-325 mg) 1 tabs {Note: rass0, pain ll1 6/10.} Route: PO; 11:58 Follow up: Response: No adverse reaction; Pain is unchanged, physician notified; RASS: ll1 Alert and Calm (0) Disposition Summary: 03/31/22 11:41 Discharge Ordered Location: Home kb Condition: Stable kb Diagnosis - Cellulitis of right lower limb kb Followup: kb - With: Emergency Department - When: As needed - Reason: Worsening of condition Followup: kb - With: Private Physician - When: 2 - 3 days - Reason: Recheck today's complaints, Continuance of care, Re-evaluation by your physician Discharge Instructions: - Discharge Summary Sheet kb - Cellulitis, Adult, [id number] kb Forms: - Medication Reconciliation Form kb - Thank You Letter kb - Antibiotic Education kb - Prescription Opioid Use kb Prescriptions: - Cephalexin 500 mg Oral Capsule - take 1 capsule by ORAL route every 8 hours for 10 days; 30 capsule; Refills: 0, kb Product Selection Permitted - Doxycycline Hyclate 100 mg Oral Tablet - take 1 tablet by ORAL route every 12 hours; 20 tablet; Refills: 0, Product kb Selection Permitted - Tramadol 50 mg Oral Tablet - take 1 tablet by ORAL route every 8 hours as needed; 12 tablet; Refills: 0, kb Product Selection Permitted Signatures: Graciela Maher, HAND STRIPER-C HAND STRIPER-Ckb Inge Bernabe, RN RN ll1
[2022-03-31] MEDS ORDERED: HYDROCODONE/APAP 7.5/325 MG TAB ONE (11:48)
[2022-03-31] MEDS ORDERED: CEPHALEXIN 250 MG CAP ONE (11:48)
[2022-03-31] MEDS ORDERED: DOXYCYCLINE 100 MG CAP PO ONE (11:48)
[2022-03-31 12:02] VITALS: BP 135/99; TEMP 98.5; O2SAT 100
== END 2022-03-31 11:58 | disposition home or self-care (01) ==
LOC: ER 11:26
DX: L03.115 Cellulitis of right lower limb (principal); I10 Essential (primary) hypertension
CPT/HCPCS: 99283